=== PATIENT | male | born 1955 | race Caucasian/White ===

== ENCOUNTER → 2023-07-02 11:00 | Outpatient (REF) | payer MEDICARE, BC, SELFPAY | LOC: RAD 11:00 | PROVIDERS: ATTENDING PHYSICIAN Psychiatry & Neurology Neurology | DX: M54.6 Pain in thoracic spine (principal) | CPT/HCPCS: 72072 ==

== ENCOUNTER → 2023-07-15 09:50 | Outpatient (REF) | payer MEDICARE, BC, SELFPAY | LOC: PAVMRI 09:50 | PROVIDERS: ATTENDING PHYSICIAN Psychiatry & Neurology Neurology; FAMILY PHYSICIAN Family Medicine | DX: M79.2 Neuralgia and neuritis, unspecified (principal) | CPT/HCPCS: 73721 ==

== ENCOUNTER 2023-07-17 18:12 | Outpatient (RCR) | payer MEDICARE, BC, SELFPAY | END 2023-07-17 23:59 | disposition home or self-care (01) | LOC: ROT 18:12 | PROVIDERS: ATTENDING PHYSICIAN Orthopaedic Surgery Orthopaedic Trauma; FAMILY PHYSICIAN Family Medicine | DX: Z47.89 Encounter for other orthopedic aftercare (principal); G56.01 Carpal tunnel syndrome, right upper limb; Z73.6 Limitation of activities due to disability | CPT/HCPCS: 97018; 97110; 97140; 97166; 97535 ==

== ENCOUNTER 2023-08-14 15:05 | Outpatient (RCR) | payer MEDICARE, BC, SELFPAY | END 2023-08-14 23:59 | disposition home or self-care (01) | LOC: ROT 15:05 | PROVIDERS: ATTENDING PHYSICIAN Orthopaedic Surgery Orthopaedic Trauma; FAMILY PHYSICIAN Family Medicine | DX: Z47.89 Encounter for other orthopedic aftercare (principal); G56.01 Carpal tunnel syndrome, right upper limb; Z73.6 Limitation of activities due to disability | CPT/HCPCS: 97010; 97018; 97110; 97140; 97530 ==

== ENCOUNTER 2023-08-30 12:36 | Outpatient (RCR) | payer MEDICARE, BC, SELFPAY | END 2023-08-30 23:59 | disposition home or self-care (01) | LOC: ROT 12:36 | PROVIDERS: ATTENDING PHYSICIAN Orthopaedic Surgery Orthopaedic Trauma; FAMILY PHYSICIAN Family Medicine | DX: Z47.89 Encounter for other orthopedic aftercare (principal); G56.01 Carpal tunnel syndrome, right upper limb; Z73.6 Limitation of activities due to disability | CPT/HCPCS: 97018; 97110 ==

== ENCOUNTER 2023-09-04 18:28 | Inpatient (IN) | payer MEDICARE, BC, SELFPAY ==
[2023-09-04 11:30] VITALS: BP 162/108
[2023-09-04 11:59] LABS: % Basophils 0.5 % (0-2); % Eosinophils 0.2 % (0-6); % Immature Granulocytes 0.4 % (0-0.5); % Lymphocytes 8.2 % (20.5-51.1); % Monocytes 7.8 % (1.7-9.3); % Neutrophils 82.9 % (42.2-75.2); Absolute Basophils 0.1 10^3/uL (0-0.2); Absolute Immature Granulocytes 0.1 10^3/uL (0-0.05); Absolute Lymphocytes 1.3 10^3/uL (1.2-3.4); Absolute Monocytes 1.2 10^3/uL (0.1-0.6); Absolute Neutrophils 12.7 10^3/uL (1.4-6.5); Hemoglobin 18.7 g/dL (13.0-18.0); Mean Corp Hgb Conc. 33.4 g/dL (33.0-37.0); Mean Corpuscular Hgb 31.6 pg (27.0-31.0); Mean Corpuscular Volume 94.6 fL (80.0-94.0); Mean Platelet Volume 9.6 fL (7.4-10.4); Nucleated Red Blood Cells % 0 % (-); Platelet Count 219 10^3/uL (130-400); Red Blood Cell Count 5.92 10^6/uL (4.70-6.10); Red Cell Dist. Width 13.8 % (11.5-14.5); White Blood Cell Count 15.3 10^3/uL (4.8-10.8)
[2023-09-04 12:13] LABS: Lactic Acid 1.8 mmol/L (0.7-2.0)
[2023-09-04 12:14] LABS: ALT (SGPT) 55 U/L (0-50); AST (SGOT) 39 U/L (17-59); Albumin 4.7 g/dl (3.5-5.0); Alkaline Phosphatase 66 U/L (38-126); Blood Urea Nitrogen 17 mg/dl (9-20); Calcium 9.7 mg/dl (8.4-10.2); Carbon Dioxide 27 mmol/L (22-30); Chloride 101 mmol/L (98-107); Glucose 131 mg/dl (70-99); Potassium 4.4 mmol/L (3.5-5.1); Sodium 137 mmol/L (135-145); Total Bilirubin 0.7 mg/dl (0.2-1.3); Total Protein 7.7 g/dl (6.3-8.2); eGFR > 60.00
--- NOTE | 2023-09-04 15:24 | ED.GENMED ---
History of Present Illness
General
Chief Complaint: Skin Problem
Time Seen by Provider: 09/04/23 15:23
Travel History
Have you had any contact with someone who has COVID-19?: No
Do you have any symptoms of coronavirus? Fever > 100 degrees, chills, cough, shortness of breath, sore throat, loss of taste or smell, muscle aches, or headache?: No
History of Present Illness
History of Present Illness:
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 She has been asked since this
morning to the thigh and groin area. Denies any fevers or chills. Has had complex infections of both lower extremities with history of IV antibiotics and has numerous antibiotic allergies and intolerances. Does note that his prosthetic seems to
be fitting poorly. Had an MRI at this facility 2 months ago showing no evidence for osteomyelitis
Past History
Past History
ED Past Medical History: Arrthythmia, Hypercholesterolemia and Other (osteoarthritis, stomach hematoma,)
ED Past Surgical History: Orthopedic and Other (bilateral knee replacements with revision of left 04/08/12, surgery for right shoulder separation, 6 knee arthroscopies, eyes surgery for muscle at age 6)
Social History
Tobacco: Non-smoker
Personal:
Living: with family
Employment: Employed
Family History
Family History: CAD
Review of Systems
Review of Systems
Allergies reviewed?: Yes
All Other Systems: ROS reviewed and negative except as documented in HPI and ROS
Phy Exam
Physical Exam
Physical Exam:
GEN: Well appearing, NAD, WDWN
HEENT: Oral mucosa moist, no scleral icterus
Cardiac: Regular rate
Lung: No respiratory distress, no tachypnea
MSK: Small laceration to the inferior anterior aspect of the stump with extensive erythema extending to the right inguinal region with associated right inguinal adenopathy. No purulent discharge obvious large open wounds, no crepitus
Skin: Good color, no pallor or jaundice, no rashes
Neuro: AO x3, moves all extremities freely
Psych: Calm, cooperative
Course
Orders/Labs/Results
Orders:
Orders
09/04/23 11:35
CR Leg Tibia/fibula Right 2 Vw Urgent
Comment:
Reason For Exam: pain , R BKA
09/04/23 11:42
C-Reactive Protein Urgent
Comment: ADD ON
Complete Blood Count/With Diff Urgent
Comprehensive Metabolic Panel Urgent
Erythrocyte Sed Rate Urgent
Comment: ADD ON
Lactate Level [Lactic Acid] Urgent
Blood Culture Urgent
NILES Source: Blood/Venous
Specimen Description:
09/04/23 Dinner
Regular
At Your Request: Full Participation
09/04/23 15:24
Add On- LAB Urgent
Tests Added?: ESR, CRP
09/04/23 15:54
Blood Culture Urgent
NILES Source: Blood/Venous
Specimen Description:
09/04/23 16:30
Cetirizine HCl [Zyrtec] 10 mg PO NOW STA
09/04/23 16:33
CeFAZolin SODIUM [Ancef] 1,000 mg 0.9% Sodium Chloride 100 ml [Nss] 100 ml IV NOW
09/04/23 17:19
HYDROmorphone [Dilaudid] 0.5 mg IV NOW STA
Ondansetron Injectable [Zofran] 4 mg IV Q6HPRN PRN
09/04/23 17:20
Admit/Transfer Patient As Directed
Co-Sign Provider:
Level of Care: Inpatient admission
Assign to:: Medical/Surgical
Physician / Group: farnaz romeo
Diagnosis: RLE cellulitis
Reason for Hospitalization: RLE cellulitis
Expected length of stay greater than two midnights?: Yes
ELOS- Estimated Length of Stay in days: 2
I certify the patient meets the requirements for IP care: Yes
09/04/23 17:22
Code Status As Directed
Resuscitation Status: Full Code
09/04/23 17:26
Diphenhydramine [Benadryl] 25 mg PO Q4HPRN PRN
09/04/23 19:22
Acetaminophen [Tylenol] 1,000 mg PO Q6HPRN PRN
Bisacodyl [Dulcolax] 10 mg RECTAL DAILYPRN PRN
Docusate W/Senna [Senokot-S] 1 tablet PO BIDPRN PRN
Enoxaparin Sodium [Lovenox] 40 mg SC QPM
HYDROmorphone [Dilaudid] 0.5 mg IV Q3HPRN PRN
Polyethylene Glycol Powder [Miralax] 17 grams PO DAILY
Pseudoephedrine Extended Rel. [Sudafed 12 Hour (Extended Release)] 120 mg PO DAILYPRN PRN
09/04/23 19:22
Activity As Directed
Activity Level: Ambulate
Vital Signs As Directed
Frequency: Per unit guidelines
Pt Eval And Treat Routine
Activity Level: Ambulate
DX Deep Vein Thrombosis Video Routine
09/04/23 20:00
Oxycodone [Roxicodone] 10 mg PO QID@0600,1000,1400,2000
09/04/23 22:00
Amlodipine [Norvasc] 5 mg PO HS
Multivitamin [Theragran] 1 tablet PO HS
lutein 40 mg PO HS
09/05/23 02:00
CeFAZolin 1 GRAM [Ancef] 1 gram in 5 ml IV Q8H
09/05/23 06:00
Basic Metabolic Panel IN AM
Complete Blood Count/No Diff IN AM
Magnesium IN AM
Abnormal Lab Results
09/04/23
11:42
WBC 15.3 H 10^3/uL
(4.8-10.8)
Hgb 18.7 H g/dL
(13.0-18.0)
Hct 56.0 H %
(39.0-52.0)
MCV 94.6 H fL
(80.0-94.0)
MCH 31.6 H pg
(27.0-31.0)
Abs Immat Gran (auto) 0.1 H 10^3/uL
(0-0.05)
Absolute Neuts (auto) 12.7 H 10^3/uL
(1.4-6.5)
Absolute Monos (auto) 1.2 H 10^3/uL
(0.1-0.6)
Neutrophils % 82.9 H %
(42.2-75.2)
Lymphocytes % 8.2 L %
(20.5-51.1)
Glucose 131 H mg/dl
(70-99)
ALT 55 H U/L
(0-50)
C-Reactive Protein 83.20 H mg/L
(0.0-10.00)
09/04/23 11:42
09/04/23 11:42
Vital Signs
Initial and Last Documented VS:
Initial Vital Signs
Temp Pulse Resp BP Pulse Ox
98.5 F 90 18 162/108 98
09/04/23 11:30 09/04/23 11:30 09/04/23 11:30 09/04/23 11:30 09/04/23 11:30
Last Documented Vital Signs
Temp Pulse Resp BP Pulse Ox
98.3 F 88 20 171/96 100
09/04/23 20:06 09/04/23 20:06 09/04/23 20:06 09/04/23 20:06 09/04/23 20:06
MDM/Problems Addressed
MDM/Problems Addressed:
Due to the patient's complex history of multiple prior stump infections coupled with his numerous antibiotic allergies and intolerances, will admit for IV antibiotics, this is particularly prudent in the setting of his leukocytosis. Discussed case
with infectious disease regarding appropriate antibiotic management, at this time we will trial cephalosporins with associated antihistamines to minimize reaction
*Critical Care Note
Total Time (30-74mins, 75-104mins- exclusive of procedures): Not Applicable
ED Attending Note
-
Portions of this chart may have been created with voice recognition software.� Occasional wrong word or��sound alike� substitutions may have occurred due to the inherent limitations of voice recognition software.
Discharge Plan
Departure
Patient Disposition: Admit
Date of Disposition: 09/04/23
Time of Disposition: 16:20
Presentation/result/management discussed w/ accepting MD/DO: Hospitalist
Discharge Problem:
Cellulitis of right lower extremity
Interventions
Interventions:
*Risk Screen - Suicide Last Done: 09/04/23 19:45
*General Assessment Last Done: 09/04/23 11:30
*Neglect/Abuse Screening Last Done: 09/04/23 11:30
ED- Fall Risk Assessment Last Done: 09/04/23 15:52
*ED COVID-19 Vaccine History Last Done: 09/04/23 19:45
*Nursing Disposition Last Done: 09/04/23 19:55
ED-Skin Assessment Last Done: 09/04/23 19:55
Discharge Date and Time
Discharge Date/Time: 09/04/23 19:56
[2023-09-04 15:38] VITALS: BMI 30.7
[2023-09-04 15:51] VITALS: BP 174/90
[2023-09-04 16:17] LABS: Erythrocyte Sed Rate 2 mm/hour (0-20)
[2023-09-04] MEDS: ZYRTEC 10 MG PO (17:00)
--- NOTE | 2023-09-04 17:07 | HPS.HSE ---
Family Physician
-
Family Physician: Sam Talbot
Chief Complaint
-
Right groin/leg infection
History of Present Illness
67-year-old male with a past medical history of hypertension, hyperlipidemia, osteoarthritis, and right BKA from traumatic injury was sent from his PCPs office for right groin/right lower extremity infection. Patient reports that he has been having
chronic stump pain. This morning, the pain worsened, there was redness and swelling of his stump all the way up to his right groin. He went to see his PCP, who sent him to the ER for IV antibiotics. He denies fevers, denies chills. No chest
pain. Reports some nausea, lightheadedness. No vomiting, no constipation, no diarrhea. No black or bloody stools. No dysuria.
Medical History
Past Medical History
Past Medical History: Reports Other
Additional Past Medical History:
Hypertension
Hyperlipidemia
Osteoarthritis
Stomach hematoma
Arrhythmia
Past Surgical History: Reports Other
Additional Past Surgical History:
Right BKA
Bilateral knee replacements with revision of the left knee
Right shoulder separation surgery
60 arthroscopies
High surgery
Social History
Tobacco: Non-smoker
Alcohol: Occasional
Drug: None
Personal:
Living: With Family
Family History
Family History: Not pertinent
Allergies / Home Medications
Allergies reflects when Allergies were last updated in [employer].
Home Medications with original date entered in [employer]
Allergy/Medication List:
Allergies
Allergy/AdvReac Type Severity Reaction Status Date / Time
cefadroxil Allergy Rash Verified 09/04/23 11:30
cephalexin Allergy Rash only Verified 09/04/23 11:30
when he is
in the
sun; can
take
indoors
clavulanic acid Allergy Rash - Verified 09/04/23 11:30
patient
unsure of
this
allergy
clindamycin Allergy severe Verified 09/04/23 11:30
diarrhea
levofloxacin Allergy tendon Verified 09/04/23 11:30
rupture
linezolid Allergy loss of Verified 09/04/23 11:30
hand use
sulfamethoxazole Allergy Rash Verified 09/04/23 11:30
[From Bactrim]
trimethoprim [From Bactrim] Allergy Rash Verified 09/04/23 11:30
vancomycin Allergy Red Man's Verified 09/04/23 11:30
Syndrome
Home Medications Table - record
�Medication �Instructions �Recorded �Confirmed
Testosterone Cream 1 applic topical DAILY apply to 04/28/22 09/04/23
inner left arm
lutein 20 mg capsule 40 mg PO HS 04/28/22 09/04/23
multivitamin with minerals-folic 1 tab PO HS 04/28/22 09/04/23
acid 200 mcg chewable tablet
(Multivitamin Gummies)
amlodipine 5 mg tablet 5 mg PO HS 09/04/23 09/04/23
ibuprofen 200 mg tablet (Motrin IB) 600 mg PO DAILYPRN PRN mild pain 09/04/23 09/04/23
oxycodone 10 mg tablet 10 mg PO QID@0600,1000,14,20 09/04/23 09/04/23
pseudoephedrine HCl 120 mg 120 mg PO DAILYPRN PRN allergies 09/04/23 09/04/23
tablet,extended release (Sudafed
12 Hour)
Review of Systems
-
A 12 point ROS was completed and negative except as noted: Yes
Physical Exam
Vital Signs
Vital Signs
Temp Pulse Resp BP Pulse Ox
98.5 F 82 16 174/90 97
09/04/23 11:30 09/04/23 15:51 09/04/23 15:51 09/04/23 15:51 09/04/23 15:51
Physical Exam
General: No Apparent Distress
HEENT: NormoCephalic, Anicteric, Moist mucous membranes and Atraumatic
Respiratory: Clear
Cardiac: S1/S2
GI: Soft, Non Tender, Non Distended and Normal Bowel Sounds
Musculoskeletal: No Clubbing, No Cyanosis and Edema, Right Lower Extremity
Skin: Other (Diffuse erythema and swelling from his right BKA stump all the way to the right groin, right inguinal lymphadenopathy noted)
Neuro: Awake, Alert and Oriented
Psych: Calm
Laboratory Results
-
09/04/23 11:42
09/04/23 11:42
Laboratory Results
Lactic Acid 1.8 mmol/L (0.7-2.0) 09/04/23 11:42
Total Bilirubin 0.7 mg/dl (0.2-1.3) 09/04/23 11:42
AST 39 U/L (17-59) 09/04/23 11:42
ALT 55 U/L (0-50) H 09/04/23 11:42
Alkaline Phosphatase 66 U/L (38-126) 09/04/23 11:42
Impression/Plan
-
# Extensive right lower extremity cellulitis from the right BKA stump to the right groin
Consult ID, treat with IV Ancef with antihistamine�so far he is tolerating
Trend fever and WBC
#Chronic right BKA stump pain
Patient follows with Dr. Louis Escamilla for pain management
Continue home oxycodone dosing 10 mg 4 times daily
Add MiraLAX daily
#Benign essential hypertension
Blood pressure elevated, due to pain
Treat pain
Continue amlodipine 5 mg at bedtime
#Obesity due to excess calories
Affects all aspects of care
DVT prophylaxis�subcu Lovenox
Full code
[2023-09-04] MEDS: ANCEF 105 MG IV (17:08)
[2023-09-04] MEDS: DILAUDID 0.5 MG IV ×2 (17:52→23:07)
[2023-09-04 20:04] VITALS: BMI 25.9
[2023-09-04 20:06] VITALS: BP 171/96
[2023-09-04] MEDS: LOVENOX SC (20:30)
[2023-09-04] MEDS: MIRALAX 17 GRAMS PO (20:30)
[2023-09-04] MEDS: ROXICODONE 10 MG PO (20:31)
[2023-09-04] MEDS: THERAGRAN 1 TABLET PO (20:32)
[2023-09-04] MEDS: NORVASC 5 MG PO (20:32)
--- NOTE | 2023-09-04 22:57 | PTCARENOTE ---
Patient arrived to unit via stretcher @ 19:22 with diagnosis of RLE cellulitis. AAOX3. Right BKA with prosthetic. Right mid thigh into right groin red in color with warmth. Pain rate 4/10 per patient. no open wounds noted. Patient denies chest pain
or SOB. Pleasant and cooperative with care. Oriented to unit. Call [facility] within reach.
[2023-09-04 23:20] VITALS: BP 173/95
[2023-09-05] MEDS: ANCEF 5 IV ×3 (02:01→17:19)
[2023-09-05] MEDS: ROXICODONE 10 MG PO ×4 (05:47→19:25)
[2023-09-05 07:30] VITALS: BP 149/87
--- NOTE | 2023-09-05 07:32 | W.PN.HOSP.TC ---
Today's Communication/Plan
-
see bold
Assessment / Plan
Assessment / Plan
HPI: 67-year-old male with a past medical history of hypertension, hyperlipidemia, osteoarthritis, and right BKA from traumatic injury was sent from his PCPs office for right groin/right lower extremity infection. Patient reports that he has been
having chronic stump pain. This morning, the pain worsened, there was redness and swelling of his stump all the way up to his right groin. He went to see his PCP, who sent him to the ER for IV antibiotics. He denies fevers, denies chills. No
chest pain. Reports some nausea, lightheadedness. No vomiting, no constipation, no diarrhea. No black or bloody stools. No dysuria.
# Extensive right lower extremity cellulitis from the right BKA stump to the right groin
Patient tolerating and improving on IV Ancef, day 2
Trend fever and WBC
#Chronic right BKA stump pain
Patient follows with Dr. Louis Escamilla for pain management
Continue home oxycodone dosing 10 mg 4 times daily, and IV dilaudid prn
Added MiraLAX daily
#Benign essential hypertension
Blood pressure elevated, due to pain
Treat pain
Continue amlodipine 5 mg at bedtime
#Obesity due to excess calories
Affects all aspects of care
DVT prophylaxis�subcu Lovenox
Full code
Total time spent to see the patient on the floor, examine the patient, review data and lab results, discuss treatment plan with patient, nursing staff around 35 minutes.
Physical Exam
General: No Apparent Distress
HEENT: NormoCephalic, Anicteric, Moist mucous membranes and Atraumatic
Respiratory: Clear
Cardiac: S1/S2
GI: Soft, Non Tender, Non Distended and Normal Bowel Sounds
Musculoskeletal: No Clubbing, No Cyanosis and Edema, Right Lower Extremity
Skin: Other (Diffuse erythema and swelling from his right BKA stump all the way to the right groin, right inguinal lymphadenopathy noted, erythema improved from admission)
Neuro: Awake, Alert and Oriented
Psych: Calm
Anticipated Discharge: 24 - 48 hours
Subjective/Interval History
-
Date of Service: September 05, 2023
Patient continues to have right groin pain and right stump pain, unchanged from admission. His right groin and right stump erythema has improved. No fever, no vomiting.
Objective Data
-
Labs:
Laboratory Results
09/05/23
06:00
WBC Pending
Hgb Pending
Hct Pending
Plt Count Pending
Sodium Pending
Potassium Pending
Chloride Pending
Carbon Dioxide Pending
BUN Pending
Creatinine Pending
Glucose Pending
Calcium Pending
Vital Signs:
Vital Signs
Temp Pulse Resp BP Pulse Ox
98.1 F 76 18 173/95 95
09/04/23 23:20 09/04/23 23:20 09/04/23 23:20 09/04/23 23:20 09/04/23 23:20
I&O
09/04/23 09/05/23 09/06/23
06:59 06:59 06:59
Intake Total 720 / 720
Output Total 875 / 875
Balance -155 / -155
[2023-09-05] MEDS: MIRALAX 17 GRAMS PO (08:26)
[2023-09-05 08:39] LABS: Hematocrit 53.5 % (39.0-52.0); Hemoglobin 17.9 g/dL (13.0-18.0); Mean Corp Hgb Conc. 33.5 g/dL (33.0-37.0); Mean Corpuscular Volume 95.7 fL (80.0-94.0); Platelet Count 206 10^3/uL (130-400); Red Blood Cell Count 5.59 10^6/uL (4.70-6.10); White Blood Cell Count 15.5 10^3/uL (4.8-10.8)
[2023-09-05 09:24] LABS: Blood Urea Nitrogen 15 mg/dl (9-20); Calcium 8.8 mg/dl (8.4-10.2); Carbon Dioxide 22 mmol/L (22-30); Chloride 103 mmol/L (98-107); Estimated Creatinine Clearance 98 ml/min; Glucose 127 mg/dl (70-99); Magnesium 1.9 mg/dl (1.6-2.3); Potassium 4.6 mmol/L (3.5-5.1); Sodium 134 mmol/L (135-145); eGFR > 60.00
[2023-09-05] MEDS: SUDAFED 12 HOUR (EXTENDED RELEASE) 120 MG PO (09:37)
[2023-09-05] MEDS: DILAUDID 0.5 MG IV ×3 (09:41→19:26)
[2023-09-05 10:15] VITALS: BP 161/101; PULSE 88
--- NOTE | 2023-09-05 10:32 | CM ---
Patient seen, initial assessment completed. Patient reports he lives with his in a three story home, about 6-7 steps to enter, then another 6-7 steps from the living room to the bedroom. Patient reports he has double railings on either side to
get up the stairs, reports he has three walkers (one on each floor) and two canes. Patient reports he has had [facility] in past, [facility] in past, s current with outpatient therapy. Patient confirms PCP Sam Talbot, pharmacy is
[facility], otherwise uses [facility] as they accept [facility]. CM will continue to follow for discharge planning needs.
Plan; watch for home IV antibiotics needs.
[2023-09-05 15:22] VITALS: BP 156/92
[2023-09-05] MEDS: LOVENOX 40 MG SC (17:19)
[2023-09-05] MEDS: NORVASC 5 MG PO (20:54)
[2023-09-05] MEDS: BENADRYL 25 MG PO (20:54)
[2023-09-05] MEDS: THERAGRAN 1 TABLET PO (20:54)
[2023-09-05 23:36] VITALS: BP 144/87
[2023-09-06] MEDS: ANCEF 5 IV ×3 (01:53→17:32)
[2023-09-06] MEDS: DILAUDID 0.5 MG IV (05:33)
[2023-09-06] MEDS: ROXICODONE 10 MG PO ×4 (05:33→21:30)
[2023-09-06 07:30] VITALS: BP 173/97
--- NOTE | 2023-09-06 07:43 | W.PN.HOSP.TC ---
Today's Communication/Plan
-
Add magnesium citrate
Plan for discharge tomorrow
Assessment / Plan
Assessment / Plan
HPI: 67-year-old male with a past medical history of hypertension, hyperlipidemia, osteoarthritis, and right BKA from traumatic injury was sent from his PCPs office for right groin/right lower extremity infection. Patient reports that he has been
having chronic stump pain. This morning, the pain worsened, there was redness and swelling of his stump all the way up to his right groin. He went to see his PCP, who sent him to the ER for IV antibiotics. He denies fevers, denies chills. No
chest pain. Reports some nausea, lightheadedness. No vomiting, no constipation, no diarrhea. No black or bloody stools. No dysuria.
# Extensive right lower extremity cellulitis from the right BKA stump to the right groin
Patient tolerating and improving on IV Ancef, day 3
Leukocytosis resolved
Trend fever and WBC
#Chronic right BKA stump pain
Patient follows with Dr. Louis Escamilla for pain management
Continue home oxycodone dosing 10 mg 4 times daily, and IV dilaudid prn
#Opioid-induced constipation
Increase to MiraLAX twice a day, add magnesium citrate
#Benign essential hypertension
Blood pressure elevated, increase amlodipine from 5 mg at bedtime to 5 mg twice a day
#Hyponatremia
Mild, monitor
#Obesity due to excess calories
Affects all aspects of care
DVT prophylaxis�subcu Lovenox
Full code
Total time spent to see the patient on the floor, examine the patient, review data and lab results, discuss treatment plan with patient, nursing staff around 35 minutes.
Physical Exam
General: No Apparent Distress
HEENT: NormoCephalic, Anicteric, Moist mucous membranes and Atraumatic
Respiratory: Clear
Cardiac: S1/S2
GI: Soft, Non Tender, Non Distended and Normal Bowel Sounds
Musculoskeletal: No Clubbing, No Cyanosis and Edema, Right Lower Extremity
Skin: Other (Diffuse erythema and swelling from his right BKA stump all the way to the right groin, right inguinal lymphadenopathy noted, erythema improved from admission)
Neuro: Awake, Alert and Oriented
Psych: Calm
Anticipated Discharge: Within 24 hours
Subjective/Interval History
-
Date of Service: September 05, 2023
Patient's right groin pain, swelling, redness continue to improve. No fever, no vomiting. He is having constipation.
Objective Data
-
Labs:
Laboratory Results
09/05/23
08:01
WBC 15.5 H
Hgb 17.9
Hct 53.5 H
Plt Count 206
Sodium 134 L
Potassium 4.6
Chloride 103
Carbon Dioxide 22
BUN 15
Creatinine 0.9
Glucose 127 H
Calcium 8.8
Vital Signs:
Vital Signs
Temp Pulse Resp BP Pulse Ox
98.2 F 82 20 149/87 94
09/05/23 07:30 09/05/23 07:30 09/05/23 07:30 09/05/23 07:30 09/05/23 07:30
I&O
09/04/23 09/05/23 09/06/23
06:59 06:59 06:59
Intake Total 720 / 720
Output Total 875 / 875
Balance -155 / -155
[2023-09-06] MEDS: MIRALAX 17 GRAMS PO ×2 (08:01→21:31)
[2023-09-06] MEDS: SUDAFED 12 HOUR (EXTENDED RELEASE) 120 MG PO (08:05)
[2023-09-06 08:42] LABS: Hematocrit 52.9 % (39.0-52.0); Hemoglobin 17.9 g/dL (13.0-18.0); Mean Corp Hgb Conc. 33.8 g/dL (33.0-37.0); Mean Corpuscular Hgb 31.8 pg (27.0-31.0); Mean Platelet Volume 9.7 fL (7.4-10.4); Platelet Count 213 10^3/uL (130-400); Red Blood Cell Count 5.63 10^6/uL (4.70-6.10); Red Cell Dist. Width 13.7 % (11.5-14.5); White Blood Cell Count 10.1 10^3/uL (4.8-10.8)
[2023-09-06 08:59] LABS: Blood Urea Nitrogen 19 mg/dl (9-20); Calcium 9.6 mg/dl (8.4-10.2); Carbon Dioxide 28 mmol/L (22-30); Chloride 97 mmol/L (98-107); Estimated Creatinine Clearance 110 ml/min; Glucose 133 mg/dl (70-99); Potassium 4.2 mmol/L (3.5-5.1); Sodium 135 mmol/L (135-145); eGFR > 60.00
[2023-09-06] MEDS: CITROMA 300 ML PO (09:50)
--- NOTE | 2023-09-06 11:52 | CM ---
Patient seen, reports no new concerns. Per PT, no skilled need. Patient remains on IV antibiotics. CM will continue to follow for discharge planning needs.
Plan; home no needs, watch for IV antibiotic needs.
[2023-09-06] MEDS: NORVASC 5 MG PO ×2 (12:09→21:30)
[2023-09-06] MEDS: TYLENOL 1000 MG PO (12:10)
[2023-09-06 15:00] VITALS: BP 168/95
[2023-09-06] MEDS: LOVENOX 40 MG SC (17:32)
[2023-09-06] MEDS: BENADRYL 25 MG PO (21:29)
[2023-09-06] MEDS: THERAGRAN 1 TABLET PO (21:30)
[2023-09-06 23:27] VITALS: BP 161/90
[2023-09-07] MEDS: ANCEF 5 IV (02:08)
[2023-09-07] MEDS: ROXICODONE 10 MG PO ×2 (06:19→09:35)
[2023-09-07] MEDS: NORVASC 5 MG PO (07:38)
[2023-09-07] MEDS: MIRALAX 17 GRAMS PO (07:38)
[2023-09-07 07:49] VITALS: BP 168/96
[2023-09-07 08:30] LABS: Hematocrit 55.2 % (39.0-52.0); Hemoglobin 18.6 g/dL (13.0-18.0); Mean Corp Hgb Conc. 33.7 g/dL (33.0-37.0); Mean Corpuscular Hgb 31.8 pg (27.0-31.0); Mean Corpuscular Volume 94.4 fL (80.0-94.0); Mean Platelet Volume 9.5 fL (7.4-10.4); Platelet Count 247 10^3/uL (130-400); Red Blood Cell Count 5.85 10^6/uL (4.70-6.10); Red Cell Dist. Width 13.3 % (11.5-14.5); White Blood Cell Count 9.8 10^3/uL (4.8-10.8)
[2023-09-07 08:55] LABS: Blood Urea Nitrogen 21 mg/dl (9-20); Calcium 9.7 mg/dl (8.4-10.2); Carbon Dioxide 28 mmol/L (22-30); Chloride 100 mmol/L (98-107); Estimated Creatinine Clearance 98 ml/min; Glucose 138 mg/dl (70-99); Potassium 4.6 mmol/L (3.5-5.1); Sodium 136 mmol/L (135-145); eGFR > 60.00
[2023-09-07] MEDS: KEFLEX 500 MG PO (09:33)
--- NOTE | 2023-09-07 10:07 | W.PN.HOSP.TC ---
Today's Communication/Plan
-
Discharge today
Assessment / Plan
Assessment / Plan
HPI: 67-year-old male with a past medical history of hypertension, hyperlipidemia, osteoarthritis, and right BKA from traumatic injury was sent from his PCPs office for right groin/right lower extremity infection. Patient reports that he has been
having chronic stump pain. This morning, the pain worsened, there was redness and swelling of his stump all the way up to his right groin. He went to see his PCP, who sent him to the ER for IV antibiotics. He denies fevers, denies chills. No
chest pain. Reports some nausea, lightheadedness. No vomiting, no constipation, no diarrhea. No black or bloody stools. No dysuria.
# Extensive right lower extremity cellulitis from the right BKA stump to the right groin
Resolving on IV Ancef, will discharge on Keflex to complete a 10-day course
Leukocytosis resolved
Follow-up with PCP in 1 week
#Chronic right BKA stump pain
Patient follows with Dr. Louis Escamilla for pain management
Continue home oxycodone dosing 10 mg 4 times daily, and IV dilaudid prn
#Opioid-induced constipation
Resolved, continue MiraLAX twice a day upon discharge
#Benign essential hypertension
Blood pressure elevated, increase amlodipine from 5 mg at bedtime to 5 mg twice a day
#Hyponatremia
Mild, monitor
#Obesity due to excess calories
Affects all aspects of care
DVT prophylaxis�subcu Lovenox
Full code
Physical Exam
General: No Apparent Distress
HEENT: NormoCephalic, Anicteric, Moist mucous membranes and Atraumatic
Respiratory: Clear
Cardiac: S1/S2
GI: Soft, Non Tender, Non Distended and Normal Bowel Sounds
Musculoskeletal: No Clubbing, No Cyanosis and Edema, Right Lower Extremity
Skin: Other (Diffuse erythema and swelling from his right BKA stump all the way to the right groin, right inguinal lymphadenopathy noted, erythema improved from admission)
Neuro: Awake, Alert and Oriented
Psych: Calm
Anticipated Discharge: Today
Subjective/Interval History
-
Date of Service: September 07, 2023
Patient has had 2 bowel movements. His right lower extremity pain and erythema continues to improve. No fever, no vomiting.
Objective Data
-
Labs:
Laboratory Results
09/07/23
08:01
WBC 9.8
Hgb 18.6 H
Hct 55.2 H
Plt Count 247
Sodium 136
Potassium 4.6
Chloride 100
Carbon Dioxide 28
BUN 21 H
Creatinine 0.9
Glucose 138 H
Calcium 9.7
Vital Signs:
Vital Signs
Temp Pulse Resp BP Pulse Ox
97.8 F 75 18 168/96 97
09/07/23 07:49 09/07/23 07:49 09/07/23 07:49 09/07/23 07:49 09/07/23 07:49
I&O
09/06/23 09/07/23 09/08/23
06:59 06:59 06:59
Intake Total 2160 / 2160 1440 / 1440
Output Total 550 / 550
Balance 1610 / 1610 1440 / 1440
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
--- NOTE | 2023-09-07 10:45 | CM ---
per notes patient to switch to po ABX, home no needs.
Plan; Home no needs.
[2023-09-07] MEDS: TYLENOL 1000 MG PO (10:56)
== END 2023-09-07 11:30 | disposition home or self-care (01) | DRG 603 ==
LOC: 4 WEST ACU 18:28
PROVIDERS: Student in an Organized Health Care Education/Training Program; ADMITTING PHYSICIAN Family Medicine; EMERGENCY PHYSICIAN Emergency Medicine; FAMILY PHYSICIAN Family Medicine
DX: L03.115 Cellulitis of right lower limb (principal); E87.1 Hypo-osmolality and hyponatremia; G89.29 Other chronic pain; I10 Essential (primary) hypertension; K59.03 Drug induced constipation; T40.2X5A Adverse effect of other opioids, initial encounter; Z89.511 Acquired absence of right leg below knee
CPT/HCPCS: 73590; 80048; 80053; 83605; 83735; 85025; 85027; 85652; 86140; 87040; 96365; 97162; 99284

== ENCOUNTER → 2023-09-23 12:32 | Outpatient (REF) | payer MEDICARE, BC, SELFPAY | LOC: WOUND 12:32 | PROVIDERS: ATTENDING PHYSICIAN Surgery; FAMILY PHYSICIAN Family Medicine | DX: L97.812 Non-pressure chronic ulcer of other part of right lower leg with fat layer exposed (principal); I10 Essential (primary) hypertension; I73.9 Peripheral vascular disease, unspecified; Z89.511 Acquired absence of right leg below knee | CPT/HCPCS: 11042; 99203 ==

== ENCOUNTER → 2023-09-30 13:28 | Outpatient (REF) | payer MEDICARE, BC, SELFPAY | LOC: RAD 13:28 | PROVIDERS: ATTENDING PHYSICIAN Surgery; FAMILY PHYSICIAN Family Medicine | DX: L97.812 Non-pressure chronic ulcer of other part of right lower leg with fat layer exposed (principal); I73.9 Peripheral vascular disease, unspecified | CPT/HCPCS: 11042; 93922; 93925 ==

== ENCOUNTER → 2023-10-14 09:52 | Outpatient (REF) | payer MEDICARE, BC, SELFPAY | LOC: WOUND 09:52 | PROVIDERS: ATTENDING PHYSICIAN Surgery; FAMILY PHYSICIAN Family Medicine | DX: L97.812 Non-pressure chronic ulcer of other part of right lower leg with fat layer exposed (principal); I73.9 Peripheral vascular disease, unspecified; I10 Essential (primary) hypertension; Z89.511 Acquired absence of right leg below knee | CPT/HCPCS: 99213 ==

== ENCOUNTER → 2023-10-28 09:24 | Outpatient (REF) | payer MEDICARE, BC, SELFPAY | LOC: WOUND 09:24 | PROVIDERS: ATTENDING PHYSICIAN Surgery; FAMILY PHYSICIAN Family Medicine | DX: L97.812 Non-pressure chronic ulcer of other part of right lower leg with fat layer exposed (principal); I10 Essential (primary) hypertension; I73.9 Peripheral vascular disease, unspecified; Z89.511 Acquired absence of right leg below knee | CPT/HCPCS: 11042 ==

== ENCOUNTER → 2023-10-29 18:50 | Outpatient (REF) | payer MEDICARE, BC, SELFPAY | LOC: MRI 18:50 | PROVIDERS: ATTENDING PHYSICIAN Surgery Vascular Surgery; FAMILY PHYSICIAN Family Medicine | DX: Z89.511 Acquired absence of right leg below knee (principal) | CPT/HCPCS: 73720; A9575 ==

== ENCOUNTER → 2023-11-21 08:26 | Outpatient (REF) | payer MEDICARE, BC, SELFPAY | LOC: RAD 08:26 | PROVIDERS: ATTENDING PHYSICIAN Orthopaedic Surgery Adult Reconstructive Orthopaedic Surgery; FAMILY PHYSICIAN Family Medicine | DX: Z96.652 Presence of left artificial knee joint (principal) | CPT/HCPCS: 78315; A9503 ==

== ENCOUNTER → 2023-11-22 10:15 | Outpatient (REF) | payer MEDICARE, BC, SELFPAY | LOC: WOUND 10:15 | PROVIDERS: ATTENDING PHYSICIAN Surgery; FAMILY PHYSICIAN Family Medicine | DX: L97.812 Non-pressure chronic ulcer of other part of right lower leg with fat layer exposed (principal); I10 Essential (primary) hypertension; I73.9 Peripheral vascular disease, unspecified; Z89.511 Acquired absence of right leg below knee | CPT/HCPCS: 11042 ==

== ENCOUNTER → 2023-12-05 14:34 | Outpatient (REF) | payer MEDICARE, BC, SELFPAY | LOC: RAD 14:34 | PROVIDERS: ATTENDING PHYSICIAN Urology; FAMILY PHYSICIAN Family Medicine | DX: C67.9 Malignant neoplasm of bladder, unspecified (principal) | CPT/HCPCS: 74178; Q9967 ==

== ENCOUNTER → 2023-12-13 09:34 | Outpatient (REF) | payer MEDICARE, BC, SELFPAY | LOC: WOUND 09:34 | PROVIDERS: ATTENDING PHYSICIAN Surgery; FAMILY PHYSICIAN Family Medicine | DX: L97.812 Non-pressure chronic ulcer of other part of right lower leg with fat layer exposed (principal); Z89.511 Acquired absence of right leg below knee; I73.9 Peripheral vascular disease, unspecified | CPT/HCPCS: 97597 ==

== ENCOUNTER → 2024-01-03 08:52 | Outpatient (REF) | payer MEDICARE, BC, SELFPAY | LOC: WOUND 08:52 | PROVIDERS: ATTENDING PHYSICIAN Surgery; FAMILY PHYSICIAN Family Medicine | DX: L97.812 Non-pressure chronic ulcer of other part of right lower leg with fat layer exposed (principal); I10 Essential (primary) hypertension; I73.9 Peripheral vascular disease, unspecified; Z89.511 Acquired absence of right leg below knee | CPT/HCPCS: 11042 ==

== ENCOUNTER → 2024-01-23 08:48 | Outpatient (REF) | payer MEDICARE, BC, SELFPAY | LOC: WOUND 08:48 | PROVIDERS: ATTENDING PHYSICIAN Surgery; FAMILY PHYSICIAN Family Medicine | DX: L97.812 Non-pressure chronic ulcer of other part of right lower leg with fat layer exposed (principal); I10 Essential (primary) hypertension; I73.9 Peripheral vascular disease, unspecified; Z89.511 Acquired absence of right leg below knee | CPT/HCPCS: 11042 ==

== ENCOUNTER → 2024-02-13 09:38 | Outpatient (REF) | payer MEDICARE, BC, SELFPAY | LOC: WOUND 09:38 | PROVIDERS: ATTENDING PHYSICIAN Surgery; FAMILY PHYSICIAN Family Medicine | DX: L97.812 Non-pressure chronic ulcer of other part of right lower leg with fat layer exposed (principal); I10 Essential (primary) hypertension; I73.9 Peripheral vascular disease, unspecified; Z89.511 Acquired absence of right leg below knee | CPT/HCPCS: 11042 ==

== ENCOUNTER → 2024-02-24 09:59 | Outpatient (REF) | payer MEDICARE, BC, SELFPAY | LOC: HWRAD 09:59 | PROVIDERS: ATTENDING PHYSICIAN Student in an Organized Health Care Education/Training Program; REFERRING PHYSICIAN Family Medicine | DX: R10.9 Unspecified abdominal pain (principal) | CPT/HCPCS: 74176 ==

== ENCOUNTER 2024-03-11 15:35 | Inpatient (IN) | payer MEDICARE, BC, SELFPAY ==
[2024-03-11] VITALS (10 sets, daily range): BP systolic 146–178; BP diastolic 73–93; BMI 32.0
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
[2024-03-11 09:48] LABS: % Basophils 0.5 % (0-2); % Immature Granulocytes 0.4 % (0-0.5); % Lymphocytes 11.3 % (20.5-51.1); % Monocytes 8.5 % (1.7-9.3); % Neutrophils 78.3 % (42.2-75.2); Absolute Basophils 0.1 10^3/uL (0-0.2); Absolute Eosinophils 0.1 10^3/uL (0-0.7); Absolute Immature Granulocytes 0.1 10^3/uL (0-0.05); Absolute Lymphocytes 1.4 10^3/uL (1.2-3.4); Absolute Neutrophils 9.5 10^3/uL (1.4-6.5); Hematocrit 47.8 % (39.0-52.0); Hemoglobin 16.4 g/dL (13.0-18.0); Mean Corp Hgb Conc. 34.3 g/dL (33.0-37.0); Mean Corpuscular Hgb 30.2 pg (27.0-31.0); Mean Platelet Volume 10.2 fL (7.4-10.4); Nucleated Red Blood Cells % 0 % (-); Platelet Count 256 10^3/uL (130-400); Red Blood Cell Count 5.43 10^6/uL (4.70-6.10); Red Cell Dist. Width 13.2 % (11.5-14.5); White Blood Cell Count 12.1 10^3/uL (4.8-10.8)
[2024-03-11 10:07] LABS: ALT (SGPT) 27 U/L (0-50); AST (SGOT) 32 U/L (17-59); Albumin 4.2 g/dl (3.5-5.0); Alkaline Phosphatase 61 U/L (38-126); Blood Urea Nitrogen 16 mg/dl (9-20); Calcium 9.5 mg/dl (8.4-10.2); Carbon Dioxide 25 mmol/L (22-30); Chloride 100 mmol/L (98-107); Estimated Creatinine Clearance 109 ml/min; Glucose 166 mg/dl (70-99); Potassium 4.2 mmol/L (3.5-5.1); Sodium 137 mmol/L (135-145); Total Bilirubin 0.5 mg/dl (0.2-1.3); Total Protein 6.9 g/dl (6.3-8.2); eGFR > 60.00
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
[2024-03-11] MEDS: ROXICODONE 10 MG PO ×3 (14:29→23:59)
[2024-03-11] MEDS: OXYCONTIN (CONTROLLED RELEASE) 10 MG PO ×2 (14:29→20:50)
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
--- NOTE | 2024-03-11 15:37 | PHA.VAN.IN ---
Assessment
- Assessment
Renal Function: Appears similar to baseline
- Previous Dosing Experience
Previous Regimen: Vanc 1500mg Q12H
Date of Regimen: Jan 2018
Provided Trough of: 12 (drawn prior to 4th dose of new regimen)
Patient's SCR is: Similar to previous dosing experience
Patient's weight is: Elevated compared to previous dosing experience (Patient currently weighs about 10kg more)
Patient is about 6 years older
Patient had subtherapeutic level of 7 on Vanc 1000mg Q12H prior to being increased to 1500mg Q12H
AUC Dosing Plan
- Dosing Variables
Dosing Weight (kg): 107
Dosing CrCl (ml/min): 109
Vd coefficient (L/kg): 0.6
- Empiric Dosing
Initial / Loading Dose: 2000mg - infused over 3.5H - 03/11 15:56
Maintenance Regimen: Vanc 1250mg Q12H infused over 2 H starting 03/12 0600
Estimated AUC (mcg*h/mL): 450
Estimated Peak (mcg*h/mL): 28.6
Estimated Trough (mcg/ml): 11.1
Estimated Half Life (H): 7.3
Will reduce dose slightly compared to prior dosing experience given increased age and slower infusion rate
Infuse doses at approximately 10mg/min to reduce risk of infusion reaction
- Monitoring
No levels ordered at this time: consider levels in next few days
Pharmacokinetics Vancomycin I
- -
Patient Age: 68
Patient Sex: Male
Vancomycin Day #: 1
Indication: Skin And Soft Tissue
Requesting Provider: Dr. Champion
Pertinent Antimicrobial Allergies:
cefadroxil - rash
cephalexin - rash when in the sun
clavulanic acid - rash; patient unsure of this allergy
clindamycin - severe diarrhea
levofloxacin - tendon rupture
linezolid - loss of hand use
sulfamethoxazole/trimethoprim - rash
vancomycin - infusion reaction
Height / Weight:
Height 6 ft
Actual Weight 107 kg
Pertinent Past Medical History: BMI ~32, vancomycin infusion reaction
- Vital Signs / Lab Results
Temp Pulse Resp BP Pulse Ox
98.4 F 87 18 146/87 97
03/11/24 08:35 03/11/24 14:00 03/11/24 14:00 03/11/24 14:00 03/11/24 15:00
Lab Results - Hematology
03/11/24
09:25
WBC 12.1 H
Lab Results - Chemistry
03/11/24
09:25
BUN 16
Creatinine 0.8
Estimated Creat Clear 109
Albumin 4.2
Microbiology Results
03/11/24 09:34 Gram Stain - Preliminary
Foot - Left
[2024-03-11] MEDS: VANCOCIN 540 MG IV (15:46)
[2024-03-11] MEDS: CLARITIN 10 MG PO (20:49)
[2024-03-11] MEDS: VOLTAREN 50 MG PO (20:50)
[2024-03-11] MEDS: HEPARIN 5000 UNITS SC (20:51)
[2024-03-12 00:08] VITALS: BP 157/89; BMI 26.4
[2024-03-12] MEDS: VANCOCIN 275 MG IV (05:43)
[2024-03-12 05:47] LABS: Hematocrit 49.1 % (39.0-52.0); Hemoglobin 16.7 g/dL (13.0-18.0); Mean Corpuscular Hgb 31.2 pg (27.0-31.0); Mean Corpuscular Volume 91.6 fL (80.0-94.0); Mean Platelet Volume 10.1 fL (7.4-10.4); Platelet Count 274 10^3/uL (130-400); Red Blood Cell Count 5.36 10^6/uL (4.70-6.10); Red Cell Dist. Width 13.2 % (11.5-14.5)
[2024-03-12 06:06] LABS: Blood Urea Nitrogen 16 mg/dl (9-20); Calcium 9.1 mg/dl (8.4-10.2); Carbon Dioxide 27 mmol/L (22-30); Chloride 101 mmol/L (98-107); Estimated Creatinine Clearance 84 ml/min; Glucose 120 mg/dl (70-99); Potassium 4.3 mmol/L (3.5-5.1); Sodium 139 mmol/L (135-145); eGFR > 60.00
[2024-03-12] MEDS: ROXICODONE 10 MG PO ×4 (08:10→22:23)
[2024-03-12] MEDS: OXYCONTIN (CONTROLLED RELEASE) 10 MG PO ×2 (08:10→20:22)
[2024-03-12] MEDS: VITAMIN C 500 MG PO (08:10)
[2024-03-12] MEDS: NORVASC 10 MG PO (08:10)
[2024-03-12] MEDS: HEPARIN 5000 UNITS SC ×2 (08:11→20:21)
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
[2024-03-12 09:06] VITALS: BP 143/85
[2024-03-12] MEDS: CLARITIN 10 MG PO (09:11)
[2024-03-12] MEDS: VOLTAREN 50 MG PO ×2 (09:11→20:22)
--- NOTE | 2024-03-12 09:24 | PHA.VAN.FU ---
Vancomycin Assessment / Plan
- Assessment
Renal Function: Stable
WBC's are: WNL
In the past 24 hrs, patient has been: Afebrile
- Dosing Plan
Continue: Vanc 1250mg Q12H infused over 2 hours
Dosing Comments: infuse doses at 10mg/min to reduce risk of infusion reaction
- Monitoring Plan
No level(s) ordered at this time: consider levels in next few days
- Follow Up
Pharmacy will continue to follow.
Vancomycin Follow UP
- -
Patient Age: 68
Patient Sex: Male
Vancomycin Day #: 2
Indication: Skin And Soft Tissue
Requesting Provider: Dr. Champion
Pertinent Antimicrobial Allergies:
cefadroxil - rash
cephalexin - rash when in the sun
clavulanic acid - rash; patient unsure of this allergy
clindamycin - severe diarrhea
levofloxacin - tendon rupture
linezolid - loss of hand use
sulfamethoxazole/trimethoprim - rash
vancomycin - infusion reaction
Height / Weight:
Height 6 ft
Actual Weight 88.269 kg
Pertinent Past Medical History: BMI ~32, vancomycin infusion reaction
- Vital Signs / Lab Results
Temp Pulse Resp BP Pulse Ox
97.8 F 64 18 143/85 97
03/12/24 09:06 03/12/24 09:06 03/12/24 09:06 03/12/24 09:06 03/12/24 09:06
Lab Results - Hematology
03/11/24 03/12/24
09:25 05:01
WBC 12.1 H 9.0
Lab Results - Chemistry
03/11/24 03/12/24
09:25 05:01
BUN 16 16
Creatinine 0.8 0.9
Estimated Creat Clear 109 84
Albumin 4.2
Microbiology Results
03/11/24 09:34 Gram Stain - Preliminary
Foot - Left
[2024-03-12 09:52] VITALS: BP 152/89; BMI 29.1
--- NOTE | 2024-03-12 10:04 | PTCARENOTE ---
pt from ED hold. pt is AAO*3, Vss, room air. c/o LLE pain. pt is oriented to the room. call [place] within the reach. plan of care ongoing.
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
[2024-03-12] MEDS: UNASYN IV ×3 (12:48→23:12)
[2024-03-12 15:15] VITALS: BP 144/74
--- NOTE | 2024-03-12 17:12 | W.PN.UPDATE ---
Update Note
Progress Note Update
Patient seen at bedside LLE cellulitis
-partial weight bearing
-Dressings C/D/I, wound care consult with transition to home nursing as needed
-Obtain left foot radiographs and foot and ankle MRI
-Agree with Vanc per ID, appreciate recommendations
-Podiatry/ortho will follow
[2024-03-12 20:58] LABS: Hepatitis C Antibody Negative (Negative)
[2024-03-12 23:13] VITALS: BP 154/90
[2024-03-13] MEDS: UNASYN IV ×4 (05:31→23:11)
[2024-03-13 07:05] VITALS: BP 155/86
--- NOTE | 2024-03-13 07:11 | W.PN.SURGUPD ---
Surgical Update
Surgical Update
Patient seen at bedside LLE cellulitis. Not much change compared to previous evaluation.
-partial weight bearing
-Dressings C/D/I, wound care consult with transition to home nursing as needed
-Left foot radiographs negative for soft tissue emphysema and osteomyelitis
-Await results of MRI L foot
-Agree with Vanc per ID, appreciate recommendations
-Podiatry/ortho will follow
[2024-03-13] MEDS: OXYCONTIN (CONTROLLED RELEASE) 10 MG PO ×2 (08:00→20:29)
[2024-03-13] MEDS: ROXICODONE 10 MG PO ×4 (08:00→22:13)
[2024-03-13] MEDS: NORVASC 10 MG PO (08:00)
[2024-03-13] MEDS: CLARITIN 10 MG PO (08:00)
[2024-03-13] MEDS: SANTYL OINTMENT 1 APPLIC TOPICAL (08:01)
[2024-03-13] MEDS: HEPARIN 5000 UNITS SC ×2 (08:01→20:28)
[2024-03-13] MEDS: VOLTAREN 50 MG PO ×2 (08:01→20:29)
[2024-03-13] MEDS: VITAMIN C 500 MG PO (08:01)
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
[2024-03-13 12:26] LABS: Hematocrit 49.1 % (39.0-52.0); Mean Corp Hgb Conc. 34.6 g/dL (33.0-37.0); Mean Corpuscular Hgb 30.6 pg (27.0-31.0); Mean Corpuscular Volume 88.3 fL (80.0-94.0); Mean Platelet Volume 9.3 fL (7.4-10.4); Platelet Count 305 10^3/uL (130-400); Red Blood Cell Count 5.56 10^6/uL (4.70-6.10); White Blood Cell Count 8.6 10^3/uL (4.8-10.8)
[2024-03-13] MEDS: FLUSH (NSS) 1 FLUSH IV ×2 (12:39→17:32)
[2024-03-13 13:03] LABS: Blood Urea Nitrogen 23 mg/dl (9-20); Calcium 9.6 mg/dl (8.4-10.2); Carbon Dioxide 26 mmol/L (22-30); Chloride 101 mmol/L (98-107); Estimated Creatinine Clearance 78 ml/min; Glucose 105 mg/dl (70-99); Potassium 4.6 mmol/L (3.5-5.1); Sodium 139 mmol/L (135-145); eGFR > 60.00
--- NOTE | 2024-03-13 14:30 | CM ---
Alert awake oriented patient who lives with his Teri who lives in a 4 story home with 3 step to enter and 20 steps to bed and bathroom. He is independent in driving and in all activities of daily living.He uses a cane and l below knee
prothesis. He was offered VN he declined need.He uses [facility] .
[facility] VN hx / No SNF history
[facility]
PCP DR Sam Talbot
PLAN Home Declined VN
[2024-03-13 15:00] VITALS: BP 155/84
--- NOTE | 2024-03-13 15:58 | PTCARENOTE ---
Pt AAOx3, VARGAS well, OOB in room, to BR, melanie well. VSS. On room air- pulseox 96%. Abd large, soft, melanie reg diet well. Voids in BR without difficulty. Rt BKA stump and Lt foot dsgs in place, currently D/I. Resting in bed at present, no c/o.
Will continue to monitor.
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
[2024-03-13 23:32] VITALS: BP 156/81
[2024-03-14] MEDS: UNASYN IV ×4 (05:10→23:58)
[2024-03-14 06:19] LABS: Hemoglobin 16.8 g/dL (13.0-18.0); Mean Corp Hgb Conc. 34.3 g/dL (33.0-37.0); Mean Corpuscular Hgb 31.3 pg (27.0-31.0); Mean Corpuscular Volume 91.4 fL (80.0-94.0); Mean Platelet Volume 9.5 fL (7.4-10.4); Platelet Count 289 10^3/uL (130-400); Red Blood Cell Count 5.36 10^6/uL (4.70-6.10); Red Cell Dist. Width 12.9 % (11.5-14.5)
[2024-03-14 06:48] LABS: Blood Urea Nitrogen 25 mg/dl (9-20); Calcium 9.1 mg/dl (8.4-10.2); Carbon Dioxide 26 mmol/L (22-30); Chloride 101 mmol/L (98-107); Estimated Creatinine Clearance 78 ml/min; Glucose 110 mg/dl (70-99); Potassium 4.4 mmol/L (3.5-5.1); Sodium 138 mmol/L (135-145); eGFR > 60.00
[2024-03-14] MEDS: VOLTAREN 50 MG PO ×2 (07:47→20:35)
[2024-03-14] MEDS: OXYCONTIN (CONTROLLED RELEASE) 10 MG PO ×2 (07:48→20:35)
[2024-03-14] MEDS: HEPARIN 5000 UNITS SC ×2 (07:48→20:35)
[2024-03-14] MEDS: ROXICODONE 10 MG PO ×4 (07:48→22:50)
[2024-03-14] MEDS: SANTYL OINTMENT 1 APPLIC TOPICAL (07:48)
[2024-03-14] MEDS: VITAMIN C 500 MG PO (07:48)
[2024-03-14] MEDS: CLARITIN 10 MG PO (07:48)
[2024-03-14] MEDS: NORVASC 10 MG PO (07:48)
[2024-03-14 08:13] VITALS: BP 148/86
[2024-03-14] MEDS: VISBIOME 2 CAP PO (10:12)
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
[2024-03-14 16:00] VITALS: BP 154/85
[2024-03-14 23:48] VITALS: BP 157/77
[2024-03-15] MEDS: TYLENOL 650 MG PO (03:21)
[2024-03-15] MEDS: UNASYN IV ×2 (05:19→11:40)
[2024-03-15 07:00] VITALS: BP 149/91
[2024-03-15] MEDS: HEPARIN 5000 UNITS SC (08:12)
[2024-03-15] MEDS: SANTYL OINTMENT 1 APPLIC TOPICAL (08:13)
[2024-03-15] MEDS: VOLTAREN 50 MG PO (08:13)
[2024-03-15] MEDS: CLARITIN 10 MG PO (08:13)
[2024-03-15] MEDS: ROXICODONE 10 MG PO (08:13)
[2024-03-15] MEDS: NORVASC 10 MG PO (08:13)
[2024-03-15] MEDS: OXYCONTIN (CONTROLLED RELEASE) 10 MG PO (08:13)
[2024-03-15] MEDS: VITAMIN C 500 MG PO (08:13)
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
[2024-03-15 11:00] VITALS: BP 147/68
--- NOTE | 2024-03-15 11:33 | CM ---
CM continues to follow for discharge to home. Anticipate discharge in AM. Pt denies needs at this time.
Plan: VN offered and declined. Discharge to home with no needs.
[2024-03-15 11:58] LABS: Glucose - Point of Care 122 mg/dl (70-99)
--- NOTE | 2024-03-15 13:14 | W.DCSUMMARY ---
Discharge Summary
Discharge Data
Date of Admission: 03/11/24
Date of Discharge: 03/15/24
-
Pending Results: No
Hospital Course
68 years old male presented with nonhealing wound of the left foot. Patient was taking cephalexin at home without improvement. He was admitted to the hospital and received intravenous antibiotic. Patient had mild leukocytosis that later resolved.
He did not have fevers. Patient was evaluated by his weight tester Dr. Daniel Brody. He recommended imaging studies of the left foot to rule out abscess/osteomyelitis. Patient had MRI of the left foot that did not show abscess or osteomyelitis.
Patient tolerated intravenous Unasyn in the hospital without side effects. He was maintained on his chronic pain medications without changes. Wound culture was positive for Staphylococcus epidermidis. Infectious disease doctor recommended to
finish Augmentin for total of 14 days in the outpatient setting. Patient was advised to follow-up with his weight tester in outpatient setting. He remained hemodynamically stable and was discharged in a stable condition.
Discharge Plan
-
Patient Disposition: Home (Routine Discharge)
Discharge Diagnosis/Procedures: Acute cellulitis left foot
MRI did not show osteomyelitis or abscess.
You were seen by podiatry and infectious diseases doctors.
Diet: Regular
Activity Restrictions/Additional Instructions:
Wound Care Instructions
R BKA wound-clean with Vashe wound cleanser or soap and water, apply silver alginate/collagen dressing, cover with silicone border foam, change daily and as needed for drainage.
L lateral foot wound-clean with Vashe wound cleanser or soap and water, Santyl ointment, adaptic, cover with silicone border foam, change daily and as needed for drainage (add alginate after adaptic if needed for large amount of drainage).
Weigth bear restrictions as per Dr. Brody.
L knee high Tubigrip as tolerated; remove at bedtime; reapply every morning.
Elevate L heel off bed with pillows.
Follow up at [facility].
Follow up with Dr. Brody.
Follow up with your orthopedic surgeon.
Referrals:
Daniel Brody DPM [Active] - in one to two weeks
Sam Talbot MD [Family Provider] -
Prescriptions:
New
amoxicillin-pot clavulanate 875-125 mg tablet
1 tab PO BID Qty: 21 0RF
Rx Instructions:
patient tolerated the penicillin in hospital.
Continued
lutein 20 mg Capsule
40 mg PO HS
Testosterone Cream
1 applic topical DAILY
Patient Comments:
pt. gets this med. filled at [facility];
pseudoephedrine HCl [Sudafed 12 Hour] 120 mg Tablet Extended Release
120 mg PO DAILYPRN PRN (Reason: allergies)
ibuprofen [Motrin IB] 200 mg Tablet
400 mg PO DAILYPRN PRN (Reason: mild pain)
oxycodone 10 mg Tablet
10 mg PO QID
ascorbic acid (vitamin C) [Vitamin C] 500 mg Tablet
500 mg PO DAILY
diclofenac potassium 50 mg Tablet
50 mg PO BID
oxycodone [OxyContin] 10 mg Tablet,Oral Only,Ext.Rel.12 Hr
10 mg PO BID
amlodipine 5 mg tablet
10 mg PO DAILY
Discontinued
cephalexin 500 mg capsule
500 mg PO QID
Discharge Orders:
Discharge Patient (As Directed); Ordered 03/15/24
Ordered By: Domenico Kramer
Discharge Date and Time
Discharge Date/Time: 03/15/24 13:04
Print Language: SYRIAC
== END 2024-03-15 13:04 | disposition home or self-care (01) | DRG 603 ==
LOC: 4 EAST ACU 15:35
PROVIDERS: Nurse Practitioner Family; Registered Nurse; ADMITTING PHYSICIAN Student in an Organized Health Care Education/Training Program; ATTENDING PHYSICIAN Internal Medicine; EMERGENCY PHYSICIAN Student in an Organized Health Care Education/Training Program; FAMILY PHYSICIAN Family Medicine; OTHER PHYSICIAN Internal Medicine Infectious Disease; OTHER PHYSICIAN Student in an Organized Health Care Education/Training Program
DX: L03.116 Cellulitis of left lower limb (principal); F11.20 Opioid dependence, uncomplicated; M86.672 Other chronic osteomyelitis, left ankle and foot; L89.892 Pressure ulcer of other site, stage 2; L89.899 Pressure ulcer of other site, unspecified stage; M14.672 Charcot's joint, left ankle and foot; B95.61 Methicillin susceptible Staphylococcus aureus infection as the cause of diseases classified elsewhere; G89.29 Other chronic pain; I10 Essential (primary) hypertension; E78.00 Pure hypercholesterolemia, unspecified; G62.9 Polyneuropathy, unspecified; Z89.511 Acquired absence of right leg below knee; Z90.79 Acquired absence of other genital organ(s); Z85.51 Personal history of malignant neoplasm of bladder; Z85.46 Personal history of malignant neoplasm of prostate; Z88.1 Allergy status to other antibiotic agents; Z88.2 Allergy status to sulfonamides; Z96.653 Presence of artificial knee joint, bilateral; Z79.899 Other long term (current) drug therapy; Z96.82 Presence of neurostimulator
CPT/HCPCS: 73630; 73720; 80048; 80053; 82962; 85025; 85027; 86803; 87070; 87147; 87186; 87205; 97161; 97166; 99284; A9575

== ENCOUNTER 2024-06-11 10:28 | Emergency (ER) | payer MEDICARE, BC, SELFPAY ==
--- NOTE | 2024-06-11 11:21 | ED.GENMED ---
History of Present Illness
General
Chief Complaint: Musculo-Skeletal Complaint
Source: patient
Exam Limitations: none
Time Seen by Provider: 06/11/24 10:45
History of Present Illness
History of Present Illness:
See MDM
Past History
Past History
ED Past Medical History: Arrthythmia, Hypercholesterolemia and Other (osteoarthritis, stomach hematoma,)
ED Past Surgical History: Appendectomy, Orthopedic (Numerous orthopedic surgeries including for osteomyelitis of the left foot and toe), Urological (Prostatectomy 2017) and Other (bilateral knee replacements with revision of left 04/08/12, surgery
for right shoulder separation, 6 knee arthroscopies, eyes surgery for muscle at age 6)
Social History
Tobacco: Non-smoker
Alcohol: Occasional
Personal:
Living: with family
Employment: Employed
Family History
Family History: CAD
Phy Exam
Physical Exam
Physical Exam:
See MDM
Course
Orders/Labs/Results
Orders:
Orders
06/11/24 10:40
CR Knee - Left 4 Or More View* Urgent
Comment:
Reason For Exam: pain
06/11/24 11:16
Case Management Consult ONCE
Case Management Consult: Discharge Planning
Knee Immobilizer Left-Treatmen ONCE
HYDROmorphone [Dilaudid] 1 mg IM NOW STA
Pt Eval And Treat Urgent
Activity Level: Ambulate
Vital Signs
Initial and Last Documented VS:
Initial Vital Signs
Temp
97.8 F
06/11/24 10:36
Last Documented Vital Signs
Temp
97.8 F
06/11/24 10:36
MDM/Problems Addressed
Differential Diagnosis Includes:
HPI and MDM Narrative:
68-year-old male presenting for left knee pain. Patient is currently in outpatient rehab for a left patellar fracture. Patient did some heavy lifting today and felt a pop. Patient unable to flex his left leg. Patient complaining of uncontrolled
pain despite hydromorphone at home.
Will get orthopedics input in regards to surgical versus nonsurgical treatment. Will have case management and physical therapy evaluate
My concern is mobility. He has a right-sided BKA with a prosthetic limb. He may require inpatient rehab
Physical exam
General: Uncomfortable
HEENT: protecting airway
Neck: appears supple
CV: No evidence of cyanosis
Resp: No accessory muscle use
Abd: Non-distended
Extremities: Swelling and tenderness to left anterior knee. No skin changes or erythema. Inability to hip flex. Distal extremity neurovascular intact
Neuro: alert
Psych: Normal affect
Skin: Intact
Problems Addressed including Acute and Chronic Conditions affecting care:
1. Patellar fracture
Acuity: acute
Prognosis: stable
Details: Patient placed in knee immobilizer and given pain medicine. Will get orthopedics input
Updates
After Dilaudid, patient states he is feeling much better. Knee immobilizer placed and PT able to ambulate. Patient did well. PT suggesting acute rehab at [facility] where he was during his leg amputation rehab. Case management unable to place
from emergency department to acute rehab. Patient acknowledges this but states he wants to go home anyway. Case management will work on home care.
Differential Diagnosis (but not limited to): Gout, quadricep tear, patellar fracture
Testing considered: CT knee
Drug therapy (if applicable): OTC meds, please see d/c instruction regarding Rx drugs
Amount and/or Complexity of Data Reviewed
Clinical info obtained from: Patient
External data reviewed: N/A
Labs I independently reviewed (but not limited to): N/A
Radiology: X-ray independently reviewed: Knee x-ray shows patellar fracture
Pulse Ox: not hypoxic
EKG independently reviewed: N/A
Manager Bench: N/A
Critical Care: N/A
Risk of Complication:
Social Determinants of health: Good social support
Discussed with other providers: N/A
Escalation of Care includes Admit/Obs: After being observed in the Emergency Department, pt stable for discharge.
Occasional wrong word or 'sound a like' substitutions may have occurred due to the inherent limitations of voice recognition software. Read the chart carefully and recognize, using context, where substitutions have occurred.
*Critical Care Note
Total Time (30-74mins, 75-104mins- exclusive of procedures): Not Applicable
ED Attending Note
-
Portions of this chart may have been created with voice recognition software.� Occasional wrong word or��sound alike� substitutions may have occurred due to the inherent limitations of voice recognition software.
Discharge Plan
Departure
Patient Disposition: Home (Routine Discharge)
Date of Disposition: 06/11/24
Time of Disposition: 13:11
Patient with high blood pressure during this ER visit?: No
Discharge Problem:
Patellar fracture
Prescriptions:
New
hydrocodone bitartrate 10 mg capsule, oral only, ER 12hr
10 mg PO Q12H Qty: 20 0RF
No Action
lutein 20 mg Capsule
40 mg PO HS
Testosterone Cream
1 applic topical DAILY
Patient Comments:
pt. gets this med. filled at [facility];
pseudoephedrine HCl [Sudafed 12 Hour] 120 mg Tablet Extended Release
120 mg PO DAILYPRN PRN (Reason: allergies)
ibuprofen [Motrin IB] 200 mg Tablet
400 mg PO DAILYPRN PRN (Reason: mild pain)
oxycodone 10 mg Tablet
10 mg PO QID
ascorbic acid (vitamin C) [Vitamin C] 500 mg Tablet
500 mg PO DAILY
diclofenac potassium 50 mg Tablet
50 mg PO BID
oxycodone [OxyContin] 10 mg Tablet,Oral Only,Ext.Rel.12 Hr
10 mg PO BID
amlodipine 5 mg tablet
10 mg PO DAILY
amoxicillin-pot clavulanate 875-125 mg tablet
1 tab PO BID Qty: 21 0RF
Rx Instructions:
patient tolerated the penicillin in hospital.
Referrals:
Sam Talbot MD [Family Provider] -
Activity Restrictions/Additional Instructions:
Case management is in the process of setting up home care. If at anytime, you are unable to move or your pain is uncontrolled, please return.
The orthopedist recommended that you follow-up with Dr. Morgan. Please make an appointment for the first available opening.
Interventions
Interventions:
*Risk Screen - Suicide Last Done: 06/11/24 10:36
*General Assessment Last Done: 06/11/24 10:36
*Neglect/Abuse Screening Last Done: 06/11/24 10:36
Discharge Date and Time
Print Language: ESTONIAN
[2024-06-11] MEDS: DILAUDID 1 MG IM ×2 (11:24→13:22)
--- NOTE | 2024-06-11 11:55 | CM ---
Addendum entered by Nora Weston RN 06/11/24 13:14:
Patient's preference would be discharge to home. Patient has been known to [facility] and is requesting referral. CM sent referral via [facility].
Addendum entered by Nora Weston RN 06/11/24 12:44:
[facility]
Original Note:
Cm reviewed medical records. Patient has FFS Medicare and would have to be private pay. CM will await PT notes for further discharge planning effort.
[2024-06-11 12:51] VITALS: BP 138/76
[2024-06-11 13:48] VITALS: BP 124/67
== END 2024-06-11 13:49 | disposition home or self-care (01) ==
LOC: EMR 10:28
PROVIDERS: EMERGENCY PHYSICIAN Student in an Organized Health Care Education/Training Program; FAMILY PHYSICIAN Family Medicine
DX: S82.001A Unspecified fracture of right patella, initial encounter for closed fracture (principal); X58.XXXA Exposure to other specified factors, initial encounter; E78.00 Pure hypercholesterolemia, unspecified; M19.90 Unspecified osteoarthritis, unspecified site; Z82.49 Family history of ischemic heart disease and other diseases of the circulatory system; Z90.49 Acquired absence of other specified parts of digestive tract; Z90.79 Acquired absence of other genital organ(s); Z96.653 Presence of artificial knee joint, bilateral
CPT/HCPCS: 99283; 29505; 73564

== ENCOUNTER → 2024-06-29 09:02 | Outpatient (REF) | payer OTHER, MEDICARE, BC, SELFPAY ==
[2024-06-29 10:17] LABS: % Basophils 0.6 % (0-2); % Eosinophils 1.1 % (0-6); % Immature Granulocytes 0.4 % (0-0.5); % Lymphocytes 13.7 % (20.5-51.1); % Monocytes 7.3 % (1.7-9.3); % Neutrophils 76.9 % (42.2-75.2); Absolute Basophils 0.1 10^3/uL (0-0.2); Absolute Eosinophils 0.1 10^3/uL (0-0.7); Absolute Immature Granulocytes 0.1 10^3/uL (0-0.05); Absolute Lymphocytes 1.6 10^3/uL (1.2-3.4); Absolute Monocytes 0.9 10^3/uL (0.1-0.6); Absolute Neutrophils 9.2 10^3/uL (1.4-6.5); Hematocrit 38.8 % (39.0-52.0); Hemoglobin 12.9 g/dL (13.0-18.0); Mean Corp Hgb Conc. 33.2 g/dL (33.0-37.0); Mean Corpuscular Hgb 30.1 pg (27.0-31.0); Mean Corpuscular Volume 90.7 fL (80.0-94.0); Mean Platelet Volume 10.2 fL (7.4-10.4); Nucleated Red Blood Cells % 0 % (-); Platelet Count 508 10^3/uL (130-400); Red Blood Cell Count 4.28 10^6/uL (4.70-6.10); Red Cell Dist. Width 12.9 % (11.5-14.5)
[2024-06-29 10:26] LABS: Blood Urea Nitrogen 62 mg/dl (9-20); Calcium 8.4 mg/dl (8.4-10.2); Carbon Dioxide 25 mmol/L (22-30); Chloride 102 mmol/L (98-107); Creatine Phosphokinase 74 U/L (55-170); Glucose 109 mg/dl (70-99); Potassium 5.1 mmol/L (3.5-5.1); Sodium 138 mmol/L (135-145); eGFR 28.32
[2024-06-29 12:55] LABS: Erythrocyte Sed Rate 77 mm/hour (0-20)
== END ==
LOC: OLABP 09:02
PROVIDERS: ATTENDING PHYSICIAN Family Medicine
DX: T84.50XA Infection and inflammatory reaction due to unspecified internal joint prosthesis, initial encounter (principal); I10 Essential (primary) hypertension; Z89.511 Acquired absence of right leg below knee; M19.90 Unspecified osteoarthritis, unspecified site; E78.5 Hyperlipidemia, unspecified
CPT/HCPCS: 36415; 80048; 82550; 85025; 85652; 86140

== ENCOUNTER → 2024-06-30 10:05 | Outpatient (REF) | payer OTHER, MEDICARE, BC, SELFPAY ==
[2024-06-30 11:39] LABS: Hemoglobin 13.3 g/dL (13.0-18.0); Mean Corp Hgb Conc. 32.4 g/dL (33.0-37.0); Mean Corpuscular Hgb 29.6 pg (27.0-31.0); Mean Corpuscular Volume 91.3 fL (80.0-94.0); Mean Platelet Volume 10.1 fL (7.4-10.4); Platelet Count 541 10^3/uL (130-400); Red Blood Cell Count 4.49 10^6/uL (4.70-6.10); White Blood Cell Count 14.6 10^3/uL (4.8-10.8)
[2024-06-30 11:49] LABS: Blood Urea Nitrogen 63 mg/dl (9-20); Calcium 8.5 mg/dl (8.4-10.2); Carbon Dioxide 23 mmol/L (22-30); Chloride 101 mmol/L (98-107); Creatine Phosphokinase 91 U/L (55-170); Glucose 136 mg/dl (70-99); Potassium 5.2 mmol/L (3.5-5.1); Sodium 137 mmol/L (135-145); eGFR 28.32
[2024-06-30 12:00] LABS: Erythrocyte Sed Rate 82 mm/hour (0-20)
== END ==
LOC: OLABP 10:05
PROVIDERS: ATTENDING PHYSICIAN Family Medicine
DX: M19.90 Unspecified osteoarthritis, unspecified site (principal); Z89.511 Acquired absence of right leg below knee; I10 Essential (primary) hypertension; T84.51XD Infection and inflammatory reaction due to internal right hip prosthesis, subsequent encounter
CPT/HCPCS: 36415; 80048; 82550; 85027; 85652; 86140

== ENCOUNTER 2024-08-07 15:37 | Emergency (ER) | payer MEDICARE, BC, SELFPAY ==
[2024-08-07 15:52] VITALS: BP 148/79
[2024-08-07 16:17] LABS: % Basophils 0.7 % (0-2); % Eosinophils 1.9 % (0-6); % Immature Granulocytes 0.5 % (0-0.5); % Lymphocytes 18.5 % (20.5-51.1); % Monocytes 6.8 % (1.7-9.3); % Neutrophils 71.6 % (42.2-75.2); Absolute Basophils 0.1 10^3/uL (0-0.2); Absolute Eosinophils 0.2 10^3/uL (0-0.7); Absolute Immature Granulocytes 0.1 10^3/uL (0-0.05); Absolute Lymphocytes 2.1 10^3/uL (1.2-3.4); Absolute Monocytes 0.8 10^3/uL (0.1-0.6); Absolute Neutrophils 8.2 10^3/uL (1.4-6.5); Hematocrit 35.2 % (39.0-52.0); Hemoglobin 11.9 g/dL (13.0-18.0); Mean Corp Hgb Conc. 33.8 g/dL (33.0-37.0); Mean Corpuscular Hgb 29.7 pg (27.0-31.0); Mean Corpuscular Volume 87.8 fL (80.0-94.0); Mean Platelet Volume 8.7 fL (7.4-10.4); Nucleated Red Blood Cells % 0 % (-); Platelet Count 355 10^3/uL (130-400); Red Blood Cell Count 4.01 10^6/uL (4.70-6.10); Red Cell Dist. Width 12.9 % (11.5-14.5); White Blood Cell Count 11.5 10^3/uL (4.8-10.8)
[2024-08-07 16:27] LABS: INR 1.17; PT 15.2 Sec (11.4-14.6)
[2024-08-07 16:36] LABS: ALT (SGPT) 18 U/L (0-50); AST (SGOT) 23 U/L (17-59); Albumin 4.3 g/dl (3.5-5.0); Alkaline Phosphatase 95 U/L (38-126); Blood Urea Nitrogen 39 mg/dl (9-20); Calcium 9.1 mg/dl (8.4-10.2); Carbon Dioxide 22 mmol/L (22-30); Chloride 102 mmol/L (98-107); Glucose 189 mg/dl (70-99); Potassium 4.4 mmol/L (3.5-5.1); Sodium 138 mmol/L (135-145); Total Bilirubin 0.7 mg/dl (0.2-1.3); eGFR 42.83
[2024-08-07 16:42] LABS: Troponin I 0.013 ng/ml
[2024-08-07 19:50] VITALS: BP 152/87
--- NOTE | 2024-08-07 19:52 | ED.GENMED ---
History of Present Illness
General
Chief Complaint: Breathing Problem
Time Seen by Provider: 08/07/24 19:35
History of Present Illness
History of Present Illness:
68-year-old male presents the emergency department for evaluation of dyspnea on exertion for the past 3 days. Patient notes that he recently completed a long course of PICC line IV daptomycin and was started on oral cephalexin for a left prosthetic
knee infection, treated at [facility]. States since discontinuing the IV antibiotics he has noted significant dyspnea on exertion. No longer has a PICC line in place. No chest pain or fevers. Does have a mild dry cough
Past History
Past History
ED Past Medical History: Arrthythmia, Hypercholesterolemia and Other (osteoarthritis, stomach hematoma,)
ED Past Surgical History: Appendectomy, Orthopedic (Numerous orthopedic surgeries including for osteomyelitis of the left foot and toe), Urological (Prostatectomy 2017) and Other (bilateral knee replacements with revision of left 04/08/12, surgery
for right shoulder separation, 6 knee arthroscopies, eyes surgery for muscle at age 6)
Social History
Tobacco: Non-smoker
Alcohol: Occasional
Personal:
Living: with family
Employment: Employed
Family History
Family History: CAD
Review of Systems
Review of Systems
Allergies reviewed?: Yes
All Other Systems: ROS reviewed and negative except as documented in HPI and ROS
Phy Exam
Physical Exam
Physical Exam:
GEN: Well appearing, NAD, WDWN
HEENT: Oral mucosa moist, no scleral icterus
Cardiac: Regular rate and rhythm, no murmurs
Lung: No respiratory distress, no tachypnea, lungs clear to auscultation bilaterally
MSK: No gross deformity or injuries
Skin: Good color, no pallor or jaundice, no rashes
Neuro: AO x3, moves all extremities freely
Psych: Calm, cooperative
Scores
Heart Failure Risk
Heart Failure Risk Score: Not Applicable
Course
Orders/Labs/Results
Orders:
Orders
08/07/24 15:56
Electrocardiogram (*1) Urgent
Reason for Study: Shortness of Breath
EKG- Treatment ONCE
08/07/24 16:08
Complete Blood Count/With Diff Urgent
Comprehensive Metabolic Panel Urgent
NT-proBNP Urgent
Comment: ADD ON
Prothrombin Time Urgent
Troponin I Urgent
08/07/24 19:52
Add On- LAB Urgent
Tests Added?: BNP
CT Chest PE Study Urgent
Comment:
Reason For Exam: SOB, recent hospitalization
Abnormal Lab Results
08/07/24
16:08
WBC 11.5 H 10^3/uL
(4.8-10.8)
RBC 4.01 L 10^6/uL
(4.70-6.10)
Hgb 11.9 L g/dL
(13.0-18.0)
Hct 35.2 L %
(39.0-52.0)
Abs Immat Gran (auto) 0.1 H 10^3/uL
(0-0.05)
Absolute Neuts (auto) 8.2 H 10^3/uL
(1.4-6.5)
Absolute Monos (auto) 0.8 H 10^3/uL
(0.1-0.6)
Lymphocytes % 18.5 L %
(20.5-51.1)
PT 15.2 H Sec
(11.4-14.6)
BUN 39 H mg/dl
(9-20)
Creatinine 1.7 H mg/dL
(0.7-1.3)
Glucose 189 H mg/dl
(70-99)
08/07/24 16:08
08/07/24 16:08
Vital Signs
Initial and Last Documented VS:
Initial Vital Signs
Temp Pulse Resp BP Pulse Ox
97.6 F 88 18 148/79 98
08/07/24 15:52 08/07/24 15:52 08/07/24 15:52 08/07/24 15:52 08/07/24 15:52
Last Documented Vital Signs
Temp Pulse Resp BP Pulse Ox
97.6 F 74 23 141/75 99
08/07/24 15:52 08/07/24 20:45 08/07/24 20:45 08/07/24 22:08 08/07/24 22:04
MDM/Problems Addressed
MDM/Problems Addressed:
Workup reveals no acute pathology. May be acute self-limited syndrome, no evidence for pulmonary embolism on CT. Patient reassured
*Critical Care Note
Total Time (30-74mins, 75-104mins- exclusive of procedures): Not Applicable
ED Attending Note
-
Portions of this chart may have been created with voice recognition software.� Occasional wrong word or��sound alike� substitutions may have occurred due to the inherent limitations of voice recognition software.
Discharge Plan
Departure
Patient Disposition: Home (Routine Discharge)
Date of Disposition: 08/07/24
Time of Disposition: 22:32
Patient with high blood pressure during this ER visit?: No
Discharge Problem:
Shortness of breath
Instructions: Shortness of Breath (Dyspnea) (DC)
Prescriptions:
No Action
lutein 20 mg Capsule
40 mg PO HS
Testosterone Cream
1 applic topical DAILY
Patient Comments:
pt. gets this med. filled at [facility];
pseudoephedrine HCl [Sudafed 12 Hour] 120 mg Tablet Extended Release
120 mg PO DAILYPRN PRN (Reason: allergies)
ibuprofen [Motrin IB] 200 mg Tablet
400 mg PO DAILYPRN PRN (Reason: mild pain)
oxycodone 10 mg Tablet
10 mg PO QID
ascorbic acid (vitamin C) [Vitamin C] 500 mg Tablet
500 mg PO DAILY
diclofenac potassium 50 mg Tablet
50 mg PO BID
oxycodone [OxyContin] 10 mg Tablet,Oral Only,Ext.Rel.12 Hr
10 mg PO BID
amlodipine 5 mg tablet
10 mg PO DAILY
amoxicillin-pot clavulanate 875-125 mg tablet
1 tab PO BID Qty: 21 0RF
Rx Instructions:
patient tolerated the penicillin in hospital.
oxycodone 15 mg tablet
15 mg PO BID PRN (Reason: Pain) Qty: 20 0RF
Referrals:
Sam Talbot MD [Family Provider] -
Activity Restrictions/Additional Instructions:
Follow-up with your primary care doctor within 1 week
Interventions
Interventions:
*Risk Screen - Suicide Last Done: 08/07/24 22:04
*General Assessment Last Done: 08/07/24 22:04
*Neglect/Abuse Screening Last Done: 08/07/24 22:04
*ED- Fall Risk Assessment Last Done: 08/07/24 22:04
*ED COVID-19 Vaccine History Last Done: 08/07/24 22:04
*Nursing Disposition Last Done: 08/07/24 22:37
ED- Cardiac Assessment Last Done: 08/07/24 19:46
ED- Pulmonary Assessment Last Done: 08/07/24 19:46
Discharge Date and Time
Discharge Date/Time: 08/07/24 22:37
Print Language: MALAYSIAN
[2024-08-07 19:57] VITALS: BMI 28.5
[2024-08-07 20:37] VITALS: BP 132/83
[2024-08-07 20:57] LABS: NT-proBNP 581 pg/ml
[2024-08-07 22:08] VITALS: BP 141/75
== END 2024-08-07 22:37 | disposition home or self-care (01) ==
LOC: EMR 15:37
PROVIDERS: Emergency Medicine; EMERGENCY PHYSICIAN Emergency Medicine; FAMILY PHYSICIAN Family Medicine
DX: R06.02 Shortness of breath (principal); Z96.653 Presence of artificial knee joint, bilateral
CPT/HCPCS: 99285; 71275; 80053; 83880; 84484; 85025; 85610; 93005; Q9967

== ENCOUNTER → 2024-10-24 09:05 | Outpatient (REF) | payer MEDICARE, BC, SELFPAY | LOC: RAD 09:05 | PROVIDERS: ATTENDING PHYSICIAN Internal Medicine Cardiovascular Disease; FAMILY PHYSICIAN Family Medicine; REFERRING PHYSICIAN Internal Medicine Infectious Disease | DX: R06.02 Shortness of breath (principal); T84.54XD Infection and inflammatory reaction due to internal left knee prosthesis, subsequent encounter | CPT/HCPCS: 71046; 73562 ==

== ENCOUNTER → 2024-11-02 09:09 | Outpatient (REF) | payer MEDICARE, BC, SELFPAY | LOC: RAD 09:09 | PROVIDERS: ATTENDING PHYSICIAN Internal Medicine Cardiovascular Disease; FAMILY PHYSICIAN Family Medicine | DX: R79.89 Other specified abnormal findings of blood chemistry (principal); R60.0 Localized edema | CPT/HCPCS: 71275; Q9967 ==

== ENCOUNTER → 2024-11-03 10:52 | Outpatient (REF) | payer MEDICARE, BC, SELFPAY | LOC: HWRCS 10:52 | PROVIDERS: ATTENDING PHYSICIAN Internal Medicine Cardiovascular Disease; FAMILY PHYSICIAN Family Medicine | DX: I10 Essential (primary) hypertension (principal) | CPT/HCPCS: 93306 ==

== ENCOUNTER 2024-11-15 10:56 | Emergency (ER) | payer MEDICARE, BC, SELFPAY ==
[2024-11-15 11:05] VITALS: BP 162/83
--- NOTE | 2024-11-15 12:01 | ED.GENMED ---
Addendum entered and electronically signed by Luna Peralta PA-C 11/17/24 14:53:
Transfer to [facility] for septic arthritis. Patient's Lyme test is presumptive positive. Will fax a copy of this to [facility]
Original Note:
History of Present Illness
General
Chief Complaint: Skin Problem
Source: patient
Exam Limitations: none
Time Seen by Provider: 11/15/24 11:43
History of Present Illness
History of Present Illness:
68-year-old male presents complaining of increased left knee pain and swelling associated with flulike symptoms starting yesterday. He noted chills yesterday with achiness and fatigue. Patient has an extensive history to the left knee. Initially
replaced by Dr. Morgan as read by orthopedics. He became infected. In May of this year he was treated for sepsis at [facility]. His knee replacement was reopened up and the plastic parts were exchanged and he was started on 6 weeks worth of IV
daptomycin. He finished the daptomycin and has been on 500 mg of Keflex twice a day. In the interim his orthopedic surgeon of record has gone on medical leave and may not be returning to practice. He is not a diabetic. He notes today there is
slight improvement of his flulike symptoms but still notes increased pain and swelling to the left knee. He is not a diabetic. No other complaints at this time. Patient notes dark urine. He also notes he feels very similar to when he had an
infected knee and sepsis in the past
Past History
Past History
ED Past Medical History: Arrthythmia, Hypercholesterolemia and Other (osteoarthritis, stomach hematoma,)
ED Past Surgical History: Appendectomy, Orthopedic (Numerous orthopedic surgeries including for osteomyelitis of the left foot and toe), Urological (Prostatectomy 2017) and Other (bilateral knee replacements with revision of left 04/08/12, surgery
for right shoulder separation, 6 knee arthroscopies, eyes surgery for muscle at age 6)
Social History
Tobacco: Non-smoker
Alcohol: Occasional
Personal:
Living: with family
Employment: Employed
Family History
Family History: CAD
Phy Exam
Physical Exam
Physical Exam:
General: Well-appearing male no acute respiratory distress
HEENT normocephalic atraumatic musculoskeletal exam:
Left knee with effusion is warm to the touch. He has full extension with his foot hanging off the bed he can flex his knee to about 90 degrees. The knee is diffusely tender
Skin on top of the knee is slightly erythematous
Course
Orders/Labs/Results
Orders:
Orders
11/15/24 12:30
CRP [C-Reactive Protein] Urgent
Complete Blood Count/With Diff Urgent
Comprehensive Metabolic Panel Urgent
Lyme Progressive Urgent
Sed Rate [Erythrocyte Sed Rate] Urgent
11/15/24 12:41
Urinalysis Reflex To Culture Urgent
Date Specimen was Collected: 11/15/24
Time Specimen was Collected: 12:40
Urine Microscopic Reflex Cult Urgent
Urine Culture Urgent
NILES Source: U
Specimen Description:
Date Specimen was Collected: 11/15/24
Time Specimen was Collected: 12:40
11/15/24 14:32
Body Fluid Cell Count Urgent
What is the Body Fluid: joint
Date Specimen was Collected: 11/15/24
Time Specimen was Collected: 14:29
Comment: with DIFF
Body Fluid Crystals Urgent
What is the Body Fluid: joint
Date Specimen was Collected: 11/15/24
Time Specimen was Collected: 14:29
Fluid Culture with Gram Stain Urgent
NILES Source: Joint Fluid
Specimen Description:
Date Specimen was Collected: 11/15/24
Time Specimen was Collected: 14:29
11/15/24 15:56
0.9% Sodium Chloride 1000 ml [Nss] 1,000 ml IV BOLUS
11/15/24 16:48
Piperacillin/Tazo 3.375 Gram [Zosyn] 3.375 gram in 50 ml IV NOW
11/15/24 17:02
Vancomycin [Vancocin] 2,000 mg 0.9% Sodium Chloride 500 ml [Nss] 500 ml IV NOW
11/15/24 17:38
Lactic Acid Urgent
11/15/24 17:46
Blood Culture Q30M
NILES Source: Blood/Venous
Specimen Description:
11/15/24 17:48
Blood Culture Q30M
NILES Source: Blood/Venous
Specimen Description:
Abnormal Lab Results
11/15/24 11/15/24
12:30 12:41
WBC 14.8 H 10^3/uL
(4.8-10.8)
RBC 4.21 L 10^6/uL
(4.70-6.10)
Hct 38.0 L %
(39.0-52.0)
MCH 31.1 H pg
(27.0-31.0)
Abs Immat Gran (auto) 0.1 H 10^3/uL
(0-0.05)
Absolute Neuts (auto) 12.0 H 10^3/uL
(1.4-6.5)
Absolute Monos (auto) 1.5 H 10^3/uL
(0.1-0.6)
Neutrophils % 80.7 H %
(42.2-75.2)
Lymphocytes % 8.3 L %
(20.5-51.1)
Monocytes % 10.0 H %
(1.7-9.3)
ESR 50 H mm/hour
(0-20)
BUN 27 H mg/dl
(9-20)
Glucose 147 H mg/dl
(70-99)
C-Reactive Protein 189.40 H mg/L
(0.0-10.00)
Ur Occult Blood Reflex 4+ A
(Negative)
Leukocyte Esterase Rfl 1+ A
(Negative)
Urine RBC >100 A /HPF
(0-2)
Urine WBC (Reflex) 11-15 A /HPF
(0-5)
Urine Bacteria (Reflex) Moderate A
(Negative)
Urine Albumin (Reflex) 3+ A
(Neg - Trace)
11/15/24 12:30
11/15/24 12:30
Vital Signs
Initial and Last Documented VS:
Initial Vital Signs
Temp Pulse Resp BP Pulse Ox
97.7 F 89 16 162/83 99
11/15/24 11:05 11/15/24 11:05 11/15/24 11:05 11/15/24 11:05 11/15/24 11:05
Last Documented Vital Signs
Temp Pulse Resp BP Pulse Ox
97.7 F 76 16 150/79 96
11/15/24 11:05 11/15/24 16:00 11/15/24 16:00 11/15/24 16:00 11/15/24 16:00
MDM/Problems Addressed
Differential Diagnosis Includes:
Flulike symptoms including fatigue myalgias associated with left knee pain and swelling. Extensive history of left knee replacement resulting in infected replacement and sepsis. He is currently on 500 mg of Keflex twice a day. Differential could
include viral illness versus septic arthritis vs lyme.
Had extensive discussion with patient regarding treatment options. Explained that the true way to diagnose septic arthritis would be an aspiration however this does have its own risks. There is risk of introducing infection into the knee. He
understood this. Will start with blood work to check inflammatory markers and white count. Clinically the patient does have decent motion.
*Pulse Oximetry
SaO2: 99
Oxygen Mode of Delivery: Room air
Patient hypoxic: no
*Critical Care Note
Total Time (30-74mins, 75-104mins- exclusive of procedures): Not Applicable
Update Note
Update Note:
Labs reviewed patient with leukocytosis and a left shift. Inflammatory markers are elevated. Verbal consent obtained for aspiration of left knee. Concern for possible septic arthritis. Discussed with emergency room attending. The left knee was
sterilely prepped with Betadine solution and under sterile conditions the left knee was aspirated via the superior lateral approach. A total of 90 cc of cloudy red-colored fluid was aspirated from the knee. This was sent for fluid analysis.
Gram stain shows gram negative rods. Concern for septic arthritis. Discussed with patient's surgeon, [facility]. His surgeon of record is no longer practicing. They were able to find a different surgeon that would accept him at [facility]. Dr. Moya is the accepting ortho at [facility]. I ordered blood cultures and started vanc/zosyn. patient will be transferred.
ED Attending Note
-
Portions of this chart may have been created with voice recognition software.� Occasional wrong word or��sound alike� substitutions may have occurred due to the inherent limitations of voice recognition software.
Discharge Plan
Departure
Patient Disposition: Acute Care Hospital
Date of Disposition: 11/15/24
Time of Disposition: 18:10
Discharge Problem:
Septic arthritis
Prescriptions:
No Action
lutein 20 mg Capsule
40 mg PO HS
Testosterone Cream
2 pump topical DAILY
Patient Comments:
pt. gets this med. filled at [facility];
oxycodone 10 mg Tablet
10 mg PO QID
ascorbic acid (vitamin C) [Vitamin C] 500 mg Tablet
500 mg PO DAILY
amlodipine [Norvasc] 10 mg Tablet
10 mg PO DAILY
cephalexin 500 mg Capsule
500 mg PO BID
Referrals:
Sam Talbot MD [Family Provider, Family Practice]
Hospital Transfer
Other hospital: [facility]
I certify that the patient requires transfer: Yes
Discussed case with accepting physician: Nita
Reason for transfer: higher level of care and specialties available
Interventions
Interventions:
*Risk Screen - Suicide Last Done: 11/15/24 12:45
*General Assessment Last Done: 11/15/24 12:45
*Neglect/Abuse Screening Last Done: 11/15/24 12:45
*ED- Fall Risk Assessment Last Done: 11/15/24 12:45
*ED COVID-19 Vaccine History Last Done: 11/15/24 16:51
ED-Skin Assessment Last Done: 11/15/24 12:45
Discharge Date and Time
Print Language: GREEK
[2024-11-15 12:38] LABS: % Basophils 0.4 % (0-2); % Eosinophils 0.3 % (0-6); % Immature Granulocytes 0.3 % (0-0.5); % Lymphocytes 8.3 % (20.5-51.1); % Neutrophils 80.7 % (42.2-75.2); Absolute Basophils 0.1 10^3/uL (0-0.2); Absolute Immature Granulocytes 0.1 10^3/uL (0-0.05); Absolute Lymphocytes 1.2 10^3/uL (1.2-3.4); Absolute Monocytes 1.5 10^3/uL (0.1-0.6); Hemoglobin 13.1 g/dL (13.0-18.0); Mean Corp Hgb Conc. 34.5 g/dL (33.0-37.0); Mean Corpuscular Hgb 31.1 pg (27.0-31.0); Mean Corpuscular Volume 90.3 fL (80.0-94.0); Mean Platelet Volume 9.1 fL (7.4-10.4); Nucleated Red Blood Cells % 0 % (-); Platelet Count 206 10^3/uL (130-400); Red Blood Cell Count 4.21 10^6/uL (4.70-6.10); Red Cell Dist. Width 13.1 % (11.5-14.5); White Blood Cell Count 14.8 10^3/uL (4.8-10.8)
[2024-11-15 12:45] VITALS: BMI 29.4
[2024-11-15 12:47] LABS: Urine Albumin 3+ (Neg - Trace); Urine Bilirubin Negative (Negative); Urine Character Slightly Cloudy (Clear); Urine Color Yellow; Urine Glucose Negative (Negative); Urine Ketone Negative (Negative); Urine Leukocyte 1+ (Negative); Urine Nitrite Negative (Negative); Urine Occult Blood 4+ (Negative); Urine Specific Gravity 1.015 (<1.030); Urine Urobilinogen Negative (Neg - 1+); Urine pH 6.5 (5.0-9.0)
[2024-11-15 12:53] LABS: ALT (SGPT) 17 U/L (0-50); AST (SGOT) 25 U/L (17-59); Albumin 4.1 g/dl (3.5-5.0); Alkaline Phosphatase 59 U/L (38-126); Blood Urea Nitrogen 27 mg/dl (9-20); Calcium 9.1 mg/dl (8.4-10.2); Carbon Dioxide 24 mmol/L (22-30); Chloride 104 mmol/L (98-107); Glucose 147 mg/dl (70-99); Potassium 4.3 mmol/L (3.5-5.1); Sodium 138 mmol/L (135-145); Total Bilirubin 0.6 mg/dl (0.2-1.3); Total Protein 7.1 g/dl (6.3-8.2)
[2024-11-15 13:03] LABS: Urine Red Blood Cell >100 /HPF (0-2)
[2024-11-15 13:05] LABS: Urine Bacteria Moderate (Negative)
[2024-11-15 13:06] LABS: Urine Yeast 1+ (Negative)
[2024-11-15 13:07] LABS: Urine Granular Cast 0-2 /LPF (0)
[2024-11-15 13:33] LABS: Erythrocyte Sed Rate 50 mm/hour (0-20)
[2024-11-15 15:17] LABS: Body Fluid Mononuclear 8.1 %; Body Fluid Polymorphonuclear 91.9 %; Body Fluid WBC 26340 /CUMM
[2024-11-15 15:18] LABS: Body Fluid Second Tech BP
[2024-11-15 16:00] VITALS: BP 150/79
[2024-11-15] MEDS: NSS 1000 IV (16:13)
[2024-11-15] MEDS: ZOSYN 50 IV (17:47)
[2024-11-15 18:15] LABS: Lactic Acid 1.3 mmol/L (0.7-2.0)
[2024-11-15] MEDS: VANCOCIN 540 MG IV (18:33)
[2024-11-16 13:43] LABS: Lyme Antibody Screen, EIA Presump. Positive (Negative)
== END 2024-11-15 21:16 | disposition short-term general hospital (02) ==
LOC: EMR 10:56
PROVIDERS: Physician Assistant; EMERGENCY PHYSICIAN Emergency Medicine; FAMILY PHYSICIAN Family Medicine
DX: M25.562 Pain in left knee (principal); M25.462 Effusion, left knee; R68.83 Chills (without fever); R53.83 Other fatigue; M00.9 Pyogenic arthritis, unspecified; E78.00 Pure hypercholesterolemia, unspecified; M19.90 Unspecified osteoarthritis, unspecified site; Z96.652 Presence of left artificial knee joint; Z88.1 Allergy status to other antibiotic agents; Z88.2 Allergy status to sulfonamides; Z88.8 Allergy status to other drugs, medicaments and biological substances
CPT/HCPCS: 99285; 20610; 96374; 96361; 80053; 81003; 81015; 83605; 85025; 85652; 86140; 86617; 86618; 87015; 87040; 87070; 87086; 87205; 89051; 89060

== ENCOUNTER → 2024-12-30 08:25 | Outpatient (REF) | payer MEDICARE, BC, SELFPAY ==
[2024-12-30 08:35] VITALS: BP 161/80; BP_SYST 66
--- NOTE | 2024-12-30 08:59 | W.PN.UPDATE ---
Update Note
Progress Note Update
Pt arrives for right chest tunneled PICC removal. He has completed 6 weeks of abx and no longer need the PICC
Right chest prepped and draped. The PICC was removed without difficulty. Hemostasis obtained. DSD applied
== END ==
LOC: RADI 08:25
PROVIDERS: ATTENDING PHYSICIAN Physician Assistant
DX: Z45.2 Encounter for adjustment and management of vascular access device (principal)
CPT/HCPCS: 36589

== ENCOUNTER 2025-03-10 09:56 | Emergency (ER) | payer MEDICARE, BC, SELFPAY ==
[2025-03-10 09:57] VITALS: BP 172/87
[2025-03-10 10:13] VITALS: BMI 30.5
[2025-03-10 11:02] VITALS: BP 131/80
--- NOTE | 2025-03-10 11:42 | ED.GENMED ---
History of Present Illness
General
Chief Complaint: Overdose Unintentional
Source: patient
Exam Limitations: none
Time Seen by Provider: 03/10/25 10:36
Nursing documentation reviewed up to this point in time: agreed with
History of Present Illness
History of Present Illness:
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
he was taking vitamins, no depression no anxiety no suicidal thoughts he is not having any complaints does not feel euphoric does not feel short of breath no nausea
Past History
Past History
ED Past Medical History: Arrthythmia, Hypercholesterolemia and Other (osteoarthritis, stomach hematoma,)
ED Past Surgical History: Appendectomy, Orthopedic (Numerous orthopedic surgeries including for osteomyelitis of the left foot and toe), Urological (Prostatectomy 2016) and Other (bilateral knee replacements with revision of left 04/08/12, surgery
for right shoulder separation, 6 knee arthroscopies, eyes surgery for muscle at age 6)
Social History
Tobacco: Non-smoker
Alcohol: Occasional
Drug: None
Personal:
Living: with family
Employment: Employed
Family History
Family History: CAD
Review of Systems
Review of Systems
All Other Systems: Not applicable
Constitutional: Denies fatigue
Respiratory: Denies cough or trouble breathing
Cardiac: Reports no symptoms
ABD/GI: Reports no symptoms; Denies nausea
Skin: Reports no symptoms
Neurological: Denies weakness
Phy Exam
Physical Exam
Physical Exam:
Physical Exam
General: no apparent distress, not acutely ill
Neck: No jaundice pupils 4 mm
Heart: Regular
Lungs: no acute respiratory distress. clear bilaterally
Neuro: alert and oriented. no focal neurological deficits
Skin: no rash
Psychiatric: well kept. interactive and cooperative
Extremities: Right lower extremity prosthetic
Course
Vital Signs
Initial and Last Documented VS:
Initial Vital Signs
Temp Pulse Resp BP Pulse Ox
98.4 F 109 20 172/87 92
03/10/25 09:57 03/10/25 09:57 03/10/25 09:57 03/10/25 09:57 03/10/25 09:57
Last Documented Vital Signs
Temp Pulse Resp BP Pulse Ox
98.4 F 72 21 172/87 97
03/10/25 09:57 03/10/25 10:45 03/10/25 10:45 03/10/25 09:57 03/10/25 11:43
MDM/Problems Addressed
Differential Diagnosis Includes:
Accidental ingestion short acting narcotic denies suicidal thoughts or intent not a long-acting formulation
MDM/Problems Addressed:
Accidental overdose
Chronic conditions affecting care:
Chronic pain
Acute Exacerbation and/or Progression of Chronic Illness:
Chronic pain
*Pulse Oximetry
SaO2: 97
Oxygen Mode of Delivery: Room air
Patient hypoxic: no
*Critical Care Note
Total Time (30-74mins, 75-104mins- exclusive of procedures): Not Applicable
Update Note
Update Note:
Update patient's PDMP was reviewed by pharmacy patient reportedly took 4 15 mg immediate relief OxyContin
He is hemodynamically stable no signs of respiratory distress no somnolence I would like to watch him for a few hours, provide general supportive care, would not like to use any reversal agents unless absolutely necessary due to him being on
narcotics chronically and potential for putting him into withdrawal reviewed with patient and spouse and nurse
12:30 PM--- patient resting comfortably he is asymptomatic has been
ED Attending Note
-
Portions of this chart may have been created with voice recognition software.� Occasional wrong word or��sound alike� substitutions may have occurred due to the inherent limitations of voice recognition software.
Discharge Plan
Departure
Patient Disposition: Home (Routine Discharge)
Date of Disposition: 03/10/25
Time of Disposition: 12:32
Patient with high blood pressure during this ER visit?: No
Condition: Good
Discharge Problem:
Accidental drug ingestion
Instructions: Accidental Overdose (DC)
Prescriptions:
No Action
lutein 20 mg Capsule
40 mg PO HS
Testosterone Cream
2 pump topical DAILY
Patient Comments:
pt. gets this med. filled at [facility];
oxycodone 10 mg Tablet
10 mg PO QID
ascorbic acid (vitamin C) [Vitamin C] 500 mg Tablet
500 mg PO DAILY
amlodipine [Norvasc] 10 mg Tablet
10 mg PO DAILY
cephalexin 500 mg Capsule
500 mg PO BID
Referrals:
Sam Talbot MD [Family Provider, Family Practice]
Activity Restrictions/Additional Instructions:
Do not take any more pain meds until this evening or ideally tomorrow if he can tolerated
Return to the ER if worsening symptoms or any other concern
Interventions
Interventions:
*Risk Screen - Suicide Last Done: 03/10/25 09:57
*General Assessment Last Done: 03/10/25 09:57
*Neglect/Abuse Screening Last Done: 03/10/25 09:57
ED- Cardiac Assessment Last Done: 03/10/25 10:13
ED- Neurological Assessment Last Done: 03/10/25 10:13
ED-Psychological Assessment Last Done: 03/10/25 10:13
ED- Pulmonary Assessment Last Done: 03/10/25 10:13
Discharge Date and Time
Print Language: DOMINICAN
[2025-03-10 12:00] VITALS: BP 115/58
== END 2025-03-10 13:06 | disposition home or self-care (01) ==
LOC: EMR 09:56
PROVIDERS: EMERGENCY PHYSICIAN Emergency Medicine; FAMILY PHYSICIAN Family Medicine
DX: T40.2X1A Poisoning by other opioids, accidental (unintentional), initial encounter (principal); E78.00 Pure hypercholesterolemia, unspecified; G89.4 Chronic pain syndrome; M14.60 Charcot's joint, unspecified site; M19.90 Unspecified osteoarthritis, unspecified site; Z96.653 Presence of artificial knee joint, bilateral
CPT/HCPCS: 99282